=== PATIENT | female | born 1945 | race Caucasian/White ===

== ENCOUNTER 2017-02-10 05:55 | Emergency (ER) | payer MEDICARE, OTHER ==
[2017-02-10] MEDS ORDERED: RX INFO: IV CONTRAST WAS GIVEN 1 EACH MISC MISCELLANE PRN (06:31)
[2017-02-10] MEDS ORDERED: NITROGLYCERIN OINT 1 INCH/GM PACKET TOPICAL STA (06:32)
--- NOTE | 2017-02-10 06:35 | ED ---
General Adult HPI - General Source: patient, RN notes reviewed Mode of arrival: ambulatory Limitations: no limitations <Reynaldo Schwartz - Last Filed: 02/10/17 06:32> <Emil Rogers - Last Filed: 02/10/17 09:50> - General Chief complaint: Chest Pain Stated complaint: Chest Pain Time Seen by Provider: 02/10/17 06:23 - History of Present Illness Initial comments: Patient is a pleasant 71-year-old female presenting to the emergency department complaining of chest discomfort. Onset of symptoms was last night. Discomfort feels like pressure in her lower chest. Discomfort does change with positions. Patient feels there may be a lump in her lower sternal region. No abdominal pain. No associated dyspnea, nausea, or diaphoresis. No history of similar symptoms previously. Patient did have sternotomy with aortic valve replacement done around 1 year ago at [facility]. Patient states she was told here previously that she may have an aneurysm however at [facility] there was no report of aneurysm. (Reynaldo Schwartz) - Related Data Home Medications Medication Instructions Recorded Confirmed Rosuvastatin Calcium [Crestor] 10 mg PO DAILY 10/02/14 02/10/17 metFORMIN HCL [Glucophage] 500 mg PO BID 10/02/14 02/10/17 Aspirin EC [Ecotrin Low Dose] 81 mg PO BID 02/10/17 02/10/17 Lisinopril [Zestril] 2.5 mg PO DAILY 02/10/17 02/10/17 Metoprolol Tartrate [Lopressor] 25 mg PO BID 02/10/17 02/10/17 Previous Rx's Medication Instructions Recorded Ibuprofen [Motrin] 600 mg PO Q8HR PRN #15 tab 02/10/17 Allergies Allergy/AdvReac Type Severity Reaction Status Date / Time No Known Allergies Allergy Verified 02/10/17 07:19 Review of Systems ROS Other: All systems not noted in ROS Statement are negative. Constitutional: Denies: fever Eyes: Denies: eye pain ENT: Denies: ear pain Respiratory: Denies: cough, dyspnea Cardiovascular: Reports: chest pain Endocrine: Denies: fatigue Gastrointestinal: Denies: abdominal pain Genitourinary: Denies: dysuria Musculoskeletal: Denies: back pain Skin: Denies: rash Neurological: Denies: weakness <Reynaldo Schwartz - Last Filed: 02/10/17 06:32> ROS Other: All systems not noted in ROS Statement are negative. <Emil Rogers Gerard - Last Filed: 02/10/17 09:50> ROS Statement: Those systems with pertinent positive or pertinent negative responses have been documented in the HPI. Past Medical History Past Medical History: Diabetes Mellitus, Hyperlipidemia, Hypertension Additional Past Medical History / Comment(s): "aortic valve leak" History of Any Multi-Drug Resistant Organisms: None Reported Past Surgical History: Appendectomy, Hysterectomy Additional Past Surgical History / Comment(s): right shoulder. james cataract. stents placed in eyes. Past Psychological History: No Psychological Hx Reported Smoking Status: Former smoker Past Alcohol Use History: None Reported Past Drug Use History: None Reported <Reynaldo Schwartz - Last Filed: 02/10/17 06:32> General Exam Limitations: no limitations General appearance: alert, in no apparent distress Head exam: Present: atraumatic Eye exam: Present: normal appearance, PERRL ENT exam: Present: normal oropharynx Neck exam: Present: normal inspection Respiratory exam: Present: normal lung sounds bilaterally, other (No palpable mass or swelling). Absent: chest wall tenderness Cardiovascular Exam: Present: regular rate, normal rhythm Expanded Peripheral pulses: 2+: Radial (R), Radial (L), Dorsalis Pedis (R), Dorsalis Pedis (L) GI/Abdominal exam: Present: soft. Absent: distended, tenderness, guarding, rebound, rigid, pulsatile mass Extremities exam: Present: normal inspection. 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 MI 160. QRS 120. QTc 462. QTC 457. Left axis. LVH. Septal Q waves. Repolarization changes. ST depression V4-v5. <Reynaldo Schwartz - Last Filed: 02/10/17 06:32> Medical Decision Making <Reynaldo Schwartz - Last Filed: 02/10/17 06:32> - Lab Data Result diagrams: 02/10/17 06:49 02/10/17 06:49 <Emil Rogers - Last Filed: 02/10/17 09:50> - Medical Decision Making 71-year-old female presenting with chief complaint of chest pain. This was first noted patient was rolling over in bed. Described as a sharp pain on the lower border of the sternum. Patient was signed out at shift change awaiting laboratory studies and computed tomography scan. Computed tomography scan was obtained as patient has a known diagnosis of aortic root aneurysm and was quite hypertensive when she presented. Patient did not take her morning antihypertensive medications. On examination patient has reproducible pain and mild deformity of the lower sternum. There is no overlying erythema or warmth. No concern for cellulitis or infection. CT angiography is obtained, this shows a stable 4.2 cm aortic root aneurysm with no dissection, no pulmonary embolism. No change from previous CT 1 year ago. EKG shows sinus bradycardia with a ventricular rate 59, there is no T-wave flattening and inversion in the lateral precordium compared to previous EKG in 2011, otherwise EKG is unchanged. These findings are discussed with Dr. Newell as well as the patient' s presentation. He recommends anti-inflammatory medications and outpatient follow-up. Patient will call to make an appointment with her online merchandiser on Saturday or Saturday. CT findings including adrenal mass are discussed with the patient and she will follow-up with her primary care physician. Diagnosis: Musculoskeletal chest pain (Emil Rogers) - Lab Data Lab Results 02/10/17 02/10/17 02/10/17 Range/Units 06:49 06:49 06:49 WBC 5.3 (3.8-10.6) k/uL RBC 4.84 (3.80-5.40) m/uL Hgb 14.1 (11.4-16.0) gm/dL Hct 45.3 (34.0-46.0) % MCV 93.6 (80.0-100.0) fL MCH 29.2 (25.0-35.0) pg MCHC 31.2 (31.0-37.0) g/dL RDW 14.1 (11.5-15.5) % Plt Count 272 (150-450) k/uL Neutrophils % 69 % Lymphocytes % 18 % Monocytes % 5 % Eosinophils % 5 % Basophils % 1 % Neutrophils # 3.7 (1.3-7.7) k/uL Lymphocytes # 1.0 (1.0-4.8) k/uL Monocytes # 0.3 (0-1.0) k/uL Eosinophils # 0.3 (0-0.7) k/uL Basophils # 0.0 (0-0.2) k/uL PT (9.0-12.0) sec INR (<1.2) APTT (22.0-30.0) sec Sodium 139 (137-145) mmol/L Potassium 4.4 (3.5-5.1) mmol/L Chloride 107 (98-107) mmol/L Carbon Dioxide 23 (22-30) mmol/L Anion Gap 9 mmol/L BUN 16 (7-17) mg/dL Creatinine 0.70 (0.52-1.04) mg/dL Est GFR (MDRD) Af Amer >60 (>60 ml/min/1.73 sqM) Est GFR (MDRD) Non-Af >60 (>60 ml/min/1.73 sqM) Glucose 163 H (74-99) mg/dL Calcium 8.8 (8.4-10.2) mg/dL Magnesium 1.7 (1.6-2.3) mg/dL Total Bilirubin 0.3 (0.2-1.3) mg/dL AST 20 (14-36) U/L ALT 30 (9-52) U/L Alkaline Phosphatase 74 (38-126) U/L Total Creatine Kinase 119 (30-135) U/L CK-MB (CK-2) 1.5 (0.0-2.4) ng/mL CK-MB (CK-2) Rel Index 1.3 Troponin I <0.012 (0.000-0.034) ng/mL Total Protein 6.6 (6.3-8.2) g/dL Albumin 3.7 (3.5-5.0) g/dL 02/10/17 Range/Units 06:49 WBC (3.8-10.6) k/uL RBC (3.80-5.40) m/uL Hgb (11.4-16.0) gm/dL Hct (34.0-46.0) % MCV (80.0-100.0) fL MCH (25.0-35.0) pg MCHC (31.0-37.0) g/dL RDW (11.5-15.5) % Plt Count (150-450) k/uL Neutrophils % % Lymphocytes % % Monocytes % % Eosinophils % % Basophils % % Neutrophils # (1.3-7.7) k/uL Lymphocytes # (1.0-4.8) k/uL Monocytes # (0-1.0) k/uL Eosinophils # (0-0.7) k/uL Basophils # (0-0.2) k/uL PT 10.6 (9.0-12.0) sec INR 1.0 (<1.2) APTT 26.1 (22.0-30.0) sec Sodium (137-145) mmol/L Potassium (3.5-5.1) mmol/L Chloride (98-107) mmol/L Carbon Dioxide (22-30) mmol/L Anion Gap mmol/L BUN (7-17) mg/dL Creatinine (0.52-1.04) mg/dL Est GFR (MDRD) Af Amer (>60 ml/min/1.73 sqM) Est GFR (MDRD) Non-Af (>60 ml/min/1.73 sqM) Glucose (74-99) mg/dL Calcium (8.4-10.2) mg/dL Magnesium (1.6-2.3) mg/dL Total Bilirubin (0.2-1.3) mg/dL AST (14-36) U/L ALT (9-52) U/L Alkaline Phosphatase (38-126) U/L Total Creatine Kinase (30-135) U/L CK-MB (CK-2) (0.0-2.4) ng/mL CK-MB (CK-2) Rel Index Troponin I (0.000-0.034) ng/mL Total Protein (6.3-8.2) g/dL Albumin (3.5-5.0) g/dL Disposition <Reynaldo Schwartz - Last Filed: 02/10/17 06:32> Time of Disposition: 09:49 <Emil Rogers - Last Filed: 02/10/17 09:50> Clinical Impression: Musculoskeletal chest pain Disposition: HOME SELF-CARE Condition: Good Instructions: Costochondritis (ED), Chest Pain (ED) Prescriptions: Ibuprofen [Motrin] 600 mg PO Q8HR PRN #15 tab PRN Reason: Pain Referrals: Duc Vazquez MD [Primary Care Provider] - 1-2 days
[2017-02-10 07:14] LABS: Basophils % (A) 1 %; CH 29.9; CHCM 32.1; Eosinophils # (A) 0.3 k/uL (0-0.7); Eosinophils % (A) 5 %; HCT 45.3 % (34.0-46.0); HDW 2.18; HGB 14.1 gm/dL (11.4-16.0); Luc % (Auto) 2; Lymphocytes % (A) 18 %; MCH 29.2 pg (25.0-35.0); MCHC 31.2 g/dL (31.0-37.0); MCV 93.6 fL (80.0-100.0); Mean Platelet Volume 7.9; Monocytes # (A) 0.3 k/uL (0-1.0); Monocytes % (A) 5 %; Neutrophils # (A) 3.7 k/uL (1.3-7.7); Neutrophils % (A) 69 %; RBC 4.84 m/uL (3.80-5.40); RDW 14.1 % (11.5-15.5); WBC 5.3 k/uL (3.8-10.6); WBC (Perox) 5.41
[2017-02-10 07:30] LABS: ALT 30 U/L (9-52); AST 20 U/L (14-36); Alkaline Phosphatase 74 U/L (38-126); Anion Gap 9 mmol/L; Blood Urea Nitrogen 16 mg/dL (7-17); Calcium 8.8 mg/dL (8.4-10.2); Carbon Dioxide 23 mmol/L (22-30); Chloride 107 mmol/L (98-107); Glucose 163 mg/dL (74-99); Magnesium 1.7 mg/dL (1.6-2.3); Non-African American GFR(MDRD) >60 (>60 ml/min/1.73 sqM); Partial Thromboplastin Time 26.1 sec (22.0-30.0); Potassium 4.4 mmol/L (3.5-5.1); Prothrombin Time 10.6 sec (9.0-12.0); Sodium 139 mmol/L (137-145); Total Bilirubin 0.3 mg/dL (0.2-1.3); Total Protein 6.6 g/dL (6.3-8.2)
[2017-02-10 07:44] LABS: Creatine Kinase 119 U/L (30-135)
[2017-02-10 07:57] LABS: Creatine Kinase MB 1.5 ng/mL (0.0-2.4); Troponin I <0.012 ng/mL (0.000-0.034)
[2017-02-10] MEDS ORDERED: METOPROLOL TARTRATE 25 MG TAB PO STA (08:00)
[2017-02-10] MEDS ORDERED: LISINOPRIL 5 MG TAB PO STA (08:03)
[2017-02-10 08:47] VITALS: RESP 16
--- NOTE | 2017-02-10 09:07 | CT ---
EXAMINATION TYPE: CT angio chest DATE OF EXAM: 02/10/2017 8:51 AM COMPARISON: Previous study dated 05/04/2015 HISTORY: Chest pain, lump on sternum, history of ascending aneurysm CT DLP: 718 mGycm Automated exposure control for dose reduction was used. CONTRAST: CTA scan of the thorax is performed with IV Contrast, patient injected with 100 mL of Omnipaque 350, pulmonary embolism protocol. . FINDINGS: There is dependent atelectasis at the lung bases. The lungs are otherwise clear. There is no significant axillary, internal mammary, mediastinal or hilar adenopathy. There is no pleu ral or pericardial fluid. Heart size is upper limits of normal. There is no evidence of pulmonary embolus. The root of the aorta is aneurysmal measuring 4.2 cm. This is unchanged in size from previous. The pr oximal arch measures 3.4 cm. The proximal descending thoracic aorta measures 3.1 cm. At the level of the aortic hiatus, the aorta is normal in size measuring 2.6 cm. There is no evidence of dissection. There is been slight enlargement in the patient's known right adrenal tumor which previously measured 11.6 x 16.9 mm. Today this measures 13.7 x 19.6 mm. Visualized portions of the upper abdomen are otherwise normal. There is a partial eventration of the right hemidiaphragm. There has been an interval midline sternotomy. The most inferior sternal wire is projecting anteriorl y and there is a soft tissue reaction, likely granulomatous in nature. There is evidence of hypertrophic spondylosis within the spine. IMPRESSION: 1. STABLE ASCENDING THORACIC AORTIC ANEURYSM. 2. THIS EXAMINATION IS NEGATIVE FOR PULMONARY EMBOLUS. 3. SLIGHT ENLARGEMENT IN THE SIZE OF THE PATIENT'S KNOWN RIGHT ADRENAL MASS. 4. SOFT TISSUE REACTION TO THE MOST INFERIOR STERNAL WIRE WHICH IS PROJECTING ANTERIORLY.
[2017-02-10 10:14] VITALS: BP 175/77; PULSE 55; TEMP 97.6
== END 2017-02-10 10:14 | disposition home or self-care (01) ==
LOC: EC 05:55 → SUPCPDRO 05:55 → EC 10:14
DX: R07.89 Other chest pain (principal); E11.9 Type 2 diabetes mellitus without complications; E78.5 Hyperlipidemia, unspecified; I10 Essential (primary) hypertension; Z95.2 Presence of prosthetic heart valve; Z87.891 Personal history of nicotine dependence; Z79.84 Long term (current) use of oral hypoglycemic drugs; Z79.82 Long term (current) use of aspirin; Z79.899 Other long term (current) drug therapy
CPT/HCPCS: 36415; 93005; 80053; 82550; 82553; 83735; 84484; 85025; 85610; 85730; 71275; 99285; Q9967

== ENCOUNTER 2017-03-08 08:07 | Day surgery (SDC) | payer MEDICARE, OTHER ==
[2017-03-07 10:25] VITALS: BMI 32.0
[~2017-03-08 08:07] MED LIST: LACTATED RINGERS 1,000 ML IV SCH; LIDOCAINE 1% 20 ML VIAL (10MG/ML) FOR IV START INTRADERMA PRN
[2017-03-08 08:57] VITALS: TEMP 97.9
[2017-03-08 09:21] LABS: Glucose,Whole Blood 129 mg/dL (75-99)
[2017-03-08] MEDS ORDERED: LIDOCAINE 1% INJ 10MG/ML (20 ML MDV) ONE (09:23)
[2017-03-08] MEDS ORDERED: PROPOFOL 10 MG/ML 20 ML VIAL IV ONE (09:23)
--- NOTE | 2017-03-08 09:46 | P.PCN ---
Date of Procedure: 03/08/17 Procedure(s) Performed: BRIEF HISTORY: Patient is a 72-year-old pleasant white female scheduled for an elective colonoscopy as a part of screening for colorectal neoplasia. Her last colonoscopy was 10 years ago. PROCEDURE PERFORMED: Colonoscopy. PREOPERATIVE DIAGNOSIS: Screening for colon cancer. IV sedation per Anesthesia. PROCEDURE: After informed consent was obtained, the patient, was brought into the endoscopy unit. IV sedation was administered by Anesthesia under continuous monitoring. Digital rectal examination was normal. Initially the Olympus CF- 160 flexible video colonoscope was then inserted in the rectum, gradually advanced into the cecum without any difficulty. Careful examination was performed as the scope was gradually being withdrawn. Ileocecal valve and the appendiceal orifice were visualized and appeared normal. Prep was excellent. Mucosa of the cecum, ascending colon, transverse colon, descending colon, sigmoid colon, and rectum appeared normal. Sigmoid diverticulosis seen.Retroflexion was performed in the rectum and no lesions were seen. The patient tolerated the procedure well. IMPRESSION: Normal-appearing colon from rectum to cecum no evidence of colorectal neoplasia . Scattered sigmoid diverticulosis RECOMMENDATIONS: Findings of this examination were discussed with the patient patient as well as her family. She was advised to have a repeat screening colonoscopy in 10 years
[2017-03-08 09:48] VITALS: RESP 16
[2017-03-08 10:07] VITALS: BP 139/65; PULSE 55
== END 2017-03-08 10:31 | disposition home or self-care (01) ==
LOC: ORWHC2ENDO 08:07
PROVIDERS: ATTEND Internal Medicine Gastroenterology
DX: Z12.11 Encounter for screening for malignant neoplasm of colon (principal); K57.30 Diverticulosis of large intestine without perforation or abscess without bleeding; I10 Essential (primary) hypertension; E78.5 Hyperlipidemia, unspecified; E11.9 Type 2 diabetes mellitus without complications; Z79.84 Long term (current) use of oral hypoglycemic drugs; Z79.82 Long term (current) use of aspirin; Z79.899 Other long term (current) drug therapy; Z79.1 Long term (current) use of non-steroidal anti-inflammatories (NSAID)
CPT/HCPCS: J2001; J2704; G0121; 45378

== ENCOUNTER → 2017-06-19 | Outpatient (CLI) | payer MEDICARE, OTHER ==
--- NOTE | 2017-06-19 11:37 | BD ---
EXAMINATION TYPE: MG DEXA axial skeleton. DATE OF EXAM: 06/19/2017 COMPARISON: 05/18/2015 CLINICAL HISTORY: 72-year-old female postmenopausal screening without HRT Height: 61 IN Weight: 177 LBS FRAX RISK QUESTIONS: Alcohol (3 or more units per day): NO Family History (Parent hip fracture): NO Glucocorticoids (More than 3mos): NO (Ex: prednisone, prednisolone, methylprednisolone, dexamethasone, and hydrocortisone). History of Fracture in Adulthood: NO Secondary Osteoporosis: 1. Type 1 Diabetes: NO 2. Hyperthyroidism: NO 3. Menopause before 45: YES 43 4. Malnutrition: NO 5. Chronic liver disease: NO Rheumatoid Arthritis: NO Current Tobacco Use: NO RISK FACTORS HISTORY OF: Active: YES Postmenopausal woman: AGE 43 Take estrogen and/or progesterone medications: NOT NOW How long: AGE 43 - 44 MEDICATIONS: Additional Medications: HEART MEDS EXAM MEASUREMENTS: Bone mineral densitometry was performed using the [employer] System. Bone mineral density as measured about the Lumbar spine is: ----- L1-L4(G/cm2): 1.377 T Score Values are as follows: ----- L2: 0.8 ----- L3: 2.7 ----- L4: 2.8 ----- L1-L4: 1.6 Bone mineral density has: Increased 0.2% since study of: 05/18/2015 Bone mineral density about the R hip (g/cm2): 0.960 Bone mineral density about the L hip (g/cm2): 1.016 T Score values are as follows: -----R Neck: -0.6 -----L Neck: -0.2 -----R Total: -0.9 -----L Total: -0.1 Bone mineral density has: Decreased -4.6% since study of: 05/18/2015 IMPRESSION: Normal (Values between +1 and -1 indicate normal bone mass). Consider repeating this study in 5 year s or sooner if there is some new clinical indication. NOTE: T-SCORE=SD OF THE YOUNG ADULT MEAN.
--- NOTE | 2017-06-26 10:09 | MM ---
Reason for exam: screening (asymptomatic). Last mammogram was performed 2 years and 1 month ago. History: Patient is postmenopausal. Family history of breast cancer in mother at age 78 and breast cancer in cousin at age 50. Took estrogen for 7 years beginning at age 42. Physical Findings: A clinical breast exam by your physician is recommended on an annual basis and results should be correlated with mammographic findings. MG 3D Screening Mammo W/Cad Bilateral CC and MLO view(s) were taken. Prior study comparison: May 18, 2015, bilateral MG 3d screening mammo w/cad. May 29, 2013, bilateral digital screening mammo w/CAD. The breast tissue is heterogeneously dense. This may lower the sensitivity of mammography. There is no discrete abnormality. No significant changes when compared with prior studies. ASSESSMENT: Negative, BI-RAD 1 RECOMMENDATION: Routine screening mammogram of both breasts in 1 year.
== END | disposition home or self-care (01) ==
LOC: RADMAMWWP 07:22
PROVIDERS: ATTEND Internal Medicine
DX: Z12.31 Encounter for screening mammogram for malignant neoplasm of breast (principal); Z78.0 Asymptomatic menopausal state
CPT/HCPCS: 77063; 77067; 77080

== ENCOUNTER → 2018-07-30 | Outpatient (CLI) | payer MEDICARE ==
--- NOTE | 2018-07-30 08:22 | MM ---
Reason for exam: additional evaluation requested from prior study. Last mammogram was performed 1 year and 1 month ago. History: Patient is postmenopausal. Family history of breast cancer in mother at age 78 and breast cancer in cousin at age 50. Took estrogen for 7 years beginning at age 42. Physical Findings: Nurse did not find any significant physical abnormalities on exam. MG 3D Diag Mammo W/Cad TYLER Bilateral CC and MLO view(s) were taken. Prior study comparison: June 19, 2017, bilateral MG 3d screening mammo w/cad. May 18, 2015, bilateral MG 3d screening mammo w/cad. There are scattered fibroglandular densities. No significant new findings when compared with previous films. These results were verbally communicated with the patient and result sheet given to the patient on 07/30/18. ASSESSMENT: Negative, BI-RAD 1 RECOMMENDATION: Routine screening mammogram of both breasts in 1 year. Manage on a clinical basis with regard to any right breast pain. If there is any suspicious palpable abnormality patient should be referred for ultrasound.
== END | disposition home or self-care (01) ==
LOC: RADMAMWWP 06:59
PROVIDERS: ATTEND Internal Medicine
DX: N64.4 Mastodynia (principal)
CPT/HCPCS: 77066; G0279; 77062

== ENCOUNTER → 2018-10-13 | Outpatient (CLI) | payer MEDICARE ==
--- NOTE | 2018-10-14 00:09 | CT ---
EXAMINATION TYPE: CT angio chest DATE OF EXAM: 10/13/2018 COMPARISON: 02/10/2017 HISTORY: 73-year-old female with thoracic aortic aneurysm without rupture TECHNIQUE: Contiguous axial scanning of the chest performed with IV Contrast, patient injected with 1 00 mL of Isovue 370. Coronal/sagittal MIP reconstructions performed. 3-D reconstructions generated on a dedicated independent workstation. CT DLP: 320.8 mGycm Automated exposure control for dose reduction was used. FINDINGS: Heart normal size without pericardial effusion. Median sternotomy wires are present with prosthetic aortic valve. Aortic root normal caliber at 3.1 cm. Similar mild aneurysm ascending aorta at 4.1 cm. Previously measured at 4.2 cm. Mild atherosclerotic arch calcifications with conventional arch vessel branching anatomy. Stable upper descending thoracic aorta at 2.9 cm, previously measured at 3.1 cm. No evidence for aortic dissection. No thoracic lymphadenopathy by CT size criteria. Small hiatal hernia. Visualized upper abdomen shows no gross abnormality. Mild diverticular change wi thin the visualized splenic flexure. Stable 1.7 x 1.0 cm right adrenal nodule. Stability suggests a b enign etiology. Mild scattered emphysematous change without consolidation or pleural effusion. Bones: Mild endplate spondylosis mid to lower thoracic spine. IMPRESSION: 1. PROSTHETIC AORTIC VALVE WITH MEDIAN STERNOTOMY. 2. RELATIVELY SIMILAR MILD ASCENDING AORTIC ANEURYSM AT 4.1 CM. THE DESCENDING THORACIC AORTA IS CURR ENTLY MEASURED UPPER LIMITS OF NORMAL AT 2.9 CM. 3. MINIMAL EMPHYSEMATOUS CHANGE. SMALL HIATAL HERNIA. 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
== END | disposition home or self-care (01) ==
LOC: RADCTMAIN 13:13
PROVIDERS: ATTEND Internal Medicine Interventional Cardiology
DX: I71.2 Thoracic aortic aneurysm, without rupture (principal); J43.9 Emphysema, unspecified; K44.9 Diaphragmatic hernia without obstruction or gangrene; Z95.2 Presence of prosthetic heart valve
CPT/HCPCS: 82565; 84520; 71275; 36415; Q9967

== ENCOUNTER 2019-07-13 08:39 | Inpatient (IN) | payer MEDICARE ==
[2019-07-13] MEDS ORDERED: NITROGLYCERIN OINT 1 INCH/GM PACKET TOPICAL STA (08:57)
[2019-07-13] MEDS ORDERED: ASPIRIN 81 MG PO STA (08:58)
--- NOTE | 2019-07-13 09:02 | ED ---
General Adult HPI - General Chief complaint: Chest Pain Stated complaint: chest pain Time Seen by Provider: 07/13/19 08:40 Source: patient, RN notes reviewed, old records reviewed Mode of arrival: wheelchair Limitations: no limitations - History of Present Illness Initial comments: This is a 74-year-old female who presents emergency department with past medical history significant for aortic valve replacement as well as diabetes hypertension high cholesterol. Patient states she woke up at 3:00 morning with pain in the epigastric area and radiates up into her chest and into her back. Patient also has a right-sided jaw pain. Patient is also having nausea but has not vomited. Patient denies any fever chills or cough per patient denies any shortness of breath. Patient denies any headache or lightheadedness numbness or weakness. Patient states the pain is consistent and has not gone away. Patient describes the pain as a burning achy feeling - Related Data Home Medications Medication Instructions Recorded Confirmed Rosuvastatin Calcium [Crestor] 10 mg PO DAILY 10/02/14 03/08/17 metFORMIN HCL [Glucophage] 500 mg PO BID 10/02/14 03/08/17 Aspirin EC [Ecotrin Low Dose] 81 mg PO BID 02/10/17 03/07/17 Lisinopril [Zestril] 2.5 mg PO DAILY 02/10/17 03/07/17 Metoprolol Tartrate [Lopressor] 25 mg PO BID 02/10/17 03/07/17 Previous Rx's Medication Instructions Recorded Ibuprofen [Motrin] 600 mg PO Q8HR PRN #15 tab 02/10/17 Allergies Allergy/AdvReac Type Severity Reaction Status Date / Time No Known Allergies Allergy Verified 03/07/17 10:19 Review of Systems ROS Statement: Those systems with pertinent positive or pertinent negative responses have been documented in the HPI. ROS Other: All systems not noted in ROS Statement are negative. Past Medical History Past Medical History: Diabetes Mellitus, Hyperlipidemia, Hypertension Additional Past Medical History / Comment(s): "aortic valve leak" History of Any Multi-Drug Resistant Organisms: None Reported Past Surgical History: Appendectomy, Hysterectomy Additional Past Surgical History / Comment(s): right shoulder. james cataract. stents placed in eyes. open heart 4 years ago Past Anesthesia/Blood Transfusion Reactions: No Reported Reaction Past Psychological History: No Psychological Hx Reported Past Alcohol Use History: None Reported - Past Family History Mother Family Medical History: No Reported History General Exam - General Exam Comments Initial Comments: GENERAL: Patient is well-developed and well-nourished. Patient is nontoxic and well-hydrated and is in mild distress. ENT: Neck is soft and supple. No significant lymphadenopathy is noted. Oropharynx is clear. Moist mucous membranes. Neck has full range of motion without eliciting any pain. EYES: The sclera were anicteric and conjunctiva were pink and moist. Extraocular movements were intact and pupils were equal round and reactive to light. Eyelids were unremarkable. PULMONARY: Unlabored respirations. Good breath sounds bilaterally. No audible rales rhonchi or wheezing was noted. CARDIOVASCULAR: There is a regular rate and rhythm without any murmurs gallops or rubs. ABDOMEN: Soft and nontender with normal bowel sounds. Epigastric pain is not reproducible SKIN: Skin is clear with no lesions or rashes and otherwise unremarkable. NEUROLOGIC Patient is alert and oriented x3. Cranial nerves II through XII are grossly intact. Motor and sensory are also intact. Normal speech, volume and content. Symmetrical smile. MUSCULOSKELETAL: Normal extremities with adequate strength and full range of motion. No lower extremity swelling or edema. No calf tenderness. LYMPHATICS: No significant lymphadenopathy is noted PSYCHIATRIC: Normal psychiatric evaluation. Limitations: no limitations Course Vital Signs 07/13/19 07/13/19 08:39 10:34 Temperature 97.9 F Pulse Rate 55 L 51 L Respiratory 18 18 Rate Blood Pressure 198/72 199/77 O2 Sat by Pulse 98 Oximetry Medical Decision Making - Medical Decision Making EKG shows sinus bradycardia 56 bpm WV interval 260 QRS 124 Q-T intervals 42 QTC is 465. Patient's EKG is compared to an old EKG in no acute abnormality seen. Chest x-ray showed no acute abnormality. CT of the aorta showed no increasing aneurysm or dissection. Patient was started on heparin after she received aspirin and Nitropaste to the emergency department. I spoke with Dr. Garza and he agreed to admit the patient admitted the patient wrote admitting orders I continue the heparin Nitropaste and aspirin on the floor. - Lab Data Result diagrams: 07/13/19 09:05 07/13/19 09:05 Lab Results 07/13/19 07/13/19 07/13/19 Range/Units 09:05 09:05 09:05 WBC 7.0 (3.8-10.6) k/uL RBC 5.48 H (3.80-5.40) m/uL Hgb 16.6 H (11.4-16.0) gm/dL Hct 49.9 H (34.0-46.0) % MCV 91.1 (80.0-100.0) fL MCH 30.3 (25.0-35.0) pg MCHC 33.2 (31.0-37.0) g/dL RDW 12.8 (11.5-15.5) % Plt Count 268 (150-450) k/uL Neutrophils % 80 % Lymphocytes % 11 % Monocytes % 4 % Eosinophils % 3 % Basophils % 1 % Neutrophils # 5.6 (1.3-7.7) k/uL Lymphocytes # 0.8 L (1.0-4.8) k/uL Monocytes # 0.3 (0-1.0) k/uL Eosinophils # 0.2 (0-0.7) k/uL Basophils # 0.1 (0-0.2) k/uL PT 10.1 (9.0-12.0) sec INR 1.0 (<1.2) APTT 25.2 (22.0-30.0) sec Sodium 138 (137-145) mmol/L Potassium 4.8 (3.5-5.1) mmol/L Chloride 105 (98-107) mmol/L Carbon Dioxide 22 (22-30) mmol/L Anion Gap 11 mmol/L BUN 23 H (7-17) mg/dL Creatinine 0.82 (0.52-1.04) mg/dL Est GFR (CKD-EPI)AfAm 82 (>60 ml/min/1.73 sqM) Est GFR (CKD-EPI)NonAf 71 (>60 ml/min/1.73 sqM) Glucose 222 H (74-99) mg/dL Calcium 9.2 (8.4-10.2) mg/dL Magnesium 2.1 (1.6-2.3) mg/dL Total Bilirubin 0.5 (0.2-1.3) mg/dL AST 26 (14-36) U/L ALT 24 (4-34) U/L Alkaline Phosphatase 93 (38-126) U/L Troponin I (0.000-0.034) ng/mL Total Protein 8.0 (6.3-8.2) g/dL Albumin 4.6 (3.5-5.0) g/dL Amylase 78 (30-110) U/L Lipase 266 (23-300) U/L 07/13/19 Range/Units 09:05 WBC (3.8-10.6) k/uL RBC (3.80-5.40) m/uL Hgb (11.4-16.0) gm/dL Hct (34.0-46.0) % MCV (80.0-100.0) fL MCH (25.0-35.0) pg MCHC (31.0-37.0) g/dL RDW (11.5-15.5) % Plt Count (150-450) k/uL Neutrophils % % Lymphocytes % % Monocytes % % Eosinophils % % Basophils % % Neutrophils # (1.3-7.7) k/uL Lymphocytes # (1.0-4.8) k/uL Monocytes # (0-1.0) k/uL Eosinophils # (0-0.7) k/uL Basophils # (0-0.2) k/uL PT (9.0-12.0) sec INR (<1.2) APTT (22.0-30.0) sec Sodium (137-145) mmol/L Potassium (3.5-5.1) mmol/L Chloride (98-107) mmol/L Carbon Dioxide (22-30) mmol/L Anion Gap mmol/L BUN (7-17) mg/dL Creatinine (0.52-1.04) mg/dL Est GFR (CKD-EPI)AfAm (>60 ml/min/1.73 sqM) Est GFR (CKD-EPI)NonAf (>60 ml/min/1.73 sqM) Glucose (74-99) mg/dL Calcium (8.4-10.2) mg/dL Magnesium (1.6-2.3) mg/dL Total Bilirubin (0.2-1.3) mg/dL AST (14-36) U/L ALT (4-34) U/L Alkaline Phosphatase (38-126) U/L Troponin I <0.012 (0.000-0.034) ng/mL Total Protein (6.3-8.2) g/dL Albumin (3.5-5.0) g/dL Amylase (30-110) U/L Lipase (23-300) U/L Critical Care Time Critical Care Time: Yes Total Critical Care Time: 35 Disposition Clinical Impression: Unstable angina pectoris Disposition: ADMITTED IP TO THIS HOSP Referrals: Duc Vazquez MD [Primary Care Provider] - 1-2 days Time of Disposition: 11:07
[2019-07-13 09:18] LABS: Basophils # (A) 0.1 k/uL (0-0.2); Basophils % (A) 1 %; Eosinophils # (A) 0.2 k/uL (0-0.7); Eosinophils % (A) 3 %; HCT 49.9 % (34.0-46.0); HGB 16.6 gm/dL (11.4-16.0); Lymphocytes # (A) 0.8 k/uL (1.0-4.8); Lymphocytes % (A) 11 %; MCH 30.3 pg (25.0-35.0); MCHC 33.2 g/dL (31.0-37.0); MCV 91.1 fL (80.0-100.0); Mean Platelet Volume 8.3; Monocytes # (A) 0.3 k/uL (0-1.0); Monocytes % (A) 4 %; Neutrophils # (A) 5.6 k/uL (1.3-7.7); Neutrophils % (A) 80 %; Platelet Count 268 k/uL (150-450); RBC 5.48 m/uL (3.80-5.40); RDW 12.8 % (11.5-15.5)
[2019-07-13 09:29] LABS: Partial Thromboplastin Time 25.2 sec (22.0-30.0); Prothrombin Time 10.1 sec (9.0-12.0)
[2019-07-13 09:30] LABS: Albumin 4.6 g/dL (3.5-5.0); Calcium 9.2 mg/dL (8.4-10.2); Magnesium 2.1 mg/dL (1.6-2.3); Potassium 4.8 mmol/L (3.5-5.1); Total Bilirubin 0.5 mg/dL (0.2-1.3)
--- NOTE | 2019-07-13 09:30 | XR ---
EXAMINATION TYPE: XR chest 2V DATE OF EXAM: 07/13/2019 COMPARISON: 03/06/2016 HISTORY: Shortness of breath TECHNIQUE: Frontal and lateral views of the chest are obtained. FINDINGS: Scattered senescent parenchymal changes noted. Hyperinflation compatible with COPD. No evidence for infiltrate. No evidence for atelectasis. Heart size is stable. Mediastinal structures are stable and grossly unremarkable. No evidence for hilar prominence. Degenerative changes dorsal spine. IMPRESSION: 1. No evidence for acute pulmonary disease.
--- NOTE | 2019-07-13 10:49 | CT ---
EXAMINATION TYPE: CT angio thor/abd pel aorta DATE OF EXAM: 07/13/2019 COMPARISON: 10/13/2018 HISTORY: chest/epigastric pain CT DLP: 1567.8 mGycm CONTRAST: CTA thoracic and abdominal aorta with 3-D reconstruction is performed and with IV Contrast, patient i njected with 100 mL of Isovue 370. Contrast CTA of the thoracic and abdominal aorta was performed from the lung apex through the base of the pelvis. 3-D reconstruction imaging obtained at a separate workstation. CT Chest: THORACIC AORTA: Stable 4.1 cm ascending thoracic aortic aneurysm. Remaining thoracic aorta is of norm al caliber. No dissection or mediastinal hematoma. Mild atheromatous changes are seen. LUNGS: The lungs are clear and free of infiltrate or atelectasis. No pulmonary nodule or mass is det ected. No pleural effusion or CT evidence of interstitial lung disease. MEDIASTINUM: The heart is not enlarged. No evidence for mediastinal mass or adenopathy. HILAR STRUCTURES: No evidence for mass. No hilar adenopathy is appreciated. OTHER: No significant abnormality. CONTRAST CT ABDOMEN AND PELVIS ABDOMINAL AORTA: No evidence for abdominal aortic aneurysm. No dissection. Iliac vessels are symmet svitlana and patent. LIVER/GB- No significant abnormality is seen. PANCREAS- No significant abnormality is seen. SPLEEN- No significant abnormality is seen. ADRENALS-stable right adrenal nodule measuring 1.7 cm likely reflecting adenoma. KIDNEYS/BLADDER- No significant abnormality is seen. BOWEL- No Significant abnormality GENITAL ORGANS: Hysterectomy changes identified. LYMPH NODES- No greater than 1cm abdominal or pelvic lymph nodes are appreciated. OSSEOUS STRUCTURES- No significant abnormality is seen. OTHER- No significant abnormality is seen. IMPRESSION- Stable ascending thoracic aortic aneurysm. Otherwise unremarkable study.
[2019-07-13] MEDS ORDERED: HEPARIN SODIUM,PORCINE 5,000 UNIT/ML 1 ML VIAL IV ONE (11:05)
[2019-07-13] MEDS ORDERED: NITROGLYCERIN SL TABS 0.4 MG TAB SUBLINGUAL PRN (11:07)
[2019-07-13] MEDS ORDERED: HEPARIN SOD,PORK IN 0.45% NACL 25,000 UNIT in 0.45% NACL 1 250ML.BAG IV SCH (11:15)
[2019-07-13] MEDS ORDERED: NITROGLYCERIN OINT 1 INCH/GM PACKET TOPICAL SCH (12:00)
[2019-07-13] MEDS ORDERED: PANTOPRAZOLE 40 MG TABLET PO SCH (12:15)
[2019-07-13] MEDS ORDERED: LISINOPRIL 5 MG TAB PO SCH (12:15)
--- NOTE | 2019-07-13 12:37 | CONS ---
CONSULTATION Mrs. Hughes is a 74-year-old female with known history of aortic valve replacement, history of stable ascending aorta, history of mild coronary artery disease, hypertension, hyperlipidemia, diabetes mellitus, who presented with symptoms of epigastric and chest discomfort. The discomfort occurred during the night with site epigastrium radiating up to the chest associated with some symptoms of burning. Patient denies any change in her breathing. She denies any dizziness or palpitation. She denies any syncope. No PND, orthopnea, or peripheral edema. Her activity level has been limited because of her back discomfort, she was being evaluated to undergo surgical intervention that has been postponed because of the pandemic. She has underwent aortic valve replacement at [facility] and has a history of stable ascending aortic aneurysm. She recently started an over the counter medication that has vinegar about 4 days ago. Her coronary risk factors are remarkable for hypertension, hyperlipidemia, diabetes mellitus. She is a nonsmoker. MEDICATION: Include aspirin 81 mg twice a day, lisinopril 2.5 mg daily, metoprolol tartrate 25 mg twice a day, rosuvastatin 10 mg daily, metformin 500 mg twice a day, and ibuprofen on a p.r.n. basis. REVIEW OF SYSTEMS: RESPIRATORY SYSTEM: She has no recent wheezing. No cough. No history of documented obstructive lung disease. GI SYSTEM: She has change in the color of her stool, but she has not noted any blood and according to her that [id number] pill does not have iron. SYSTEM: No dysuria or hematuria. NERVOUS SYSTEM: No stroke or seizure. PHYSICAL EXAMINATION: She is a 74-year-old female, alert, oriented, in mild discomfort. Blood pressure 177/70 with a heart rate in the 50s. HEAD: Normocephalic. EYES: Sclerae nonicteric. NECK: Good upstroke, no bruit, no venous distention. LUNGS: Clear to auscultation. HEART: Regular rate and rhythm. S1, S2. No S3 with systolic murmur heard at the base, ejection type, early peaking, no diastolic murmur. ABDOMEN: Soft, epigastric tenderness reproducing the pain. No rebound. No organomegaly. EXTREMITIES: No edema, intact distal pulses. LAB DATA: Revealed a troponin less than 0.012. Blood sugar 222, BUN and creatinine 23 and 0.82. AST of 26, ALT of 24, lipase 266. Hemoglobin of 16.6. Her CT angiogram of the chest showed a stable aortic aneurysm measuring 4.1 cm with no significant changes. Her EKG revealed a sinus mechanism, rate of 56 with left axis deviation, evidence of left ventricular hypertrophy with no acute changes. Her chest x-ray shows no acute infiltrate. IMPRESSION: 1. Epigastric and chest discomfort, atypical for ischemic heart disease, probable GI in origin, I am concerned about the change in the color of the stools, although her hemoglobin is stable. 2. History of aortic valve replacement. 3. Stable ascending aortic aneurysm. 4. History of mild coronary artery disease. No evidence of acute coronary artery syndrome. 5. Hypertension, elevated. 6. Hyperlipidemia. 7. Diabetes mellitus. RECOMMENDATION: I will restart her lisinopril. Increase the dose to optimize her blood pressure control. I will also restart her beta aide and statin. If her second cardiac enzymes are negative, I will stop her IV heparin. I will add to her regimen Protonix. Will obtain echocardiogram with Doppler. Follow her hemoglobin and depending on her progress, further recommendation will be made. Thank you for this consult. Will follow with you. MMODL / IJN: [id number] /
[2019-07-13 12:40] LABS: Glucose,Whole Blood 186 mg/dL (75-99)
[2019-07-13] MEDS ORDERED: ONDANSETRON 4 MG/2 ML VIAL IVP STA (13:13)
[2019-07-13] MEDS ORDERED: amLODIPine 5 MG TAB PO STA (13:19)
[2019-07-13] MEDS ORDERED: MORPHINE SULFATE 2 MG/ML SYRINGE IVP PRN (16:32)
[2019-07-13 16:53] LABS: Glucose,Whole Blood 186 mg/dL (75-99)
[2019-07-13] MEDS ORDERED: NALOXONE 0.4 MG/ML 1 ML VIAL IV PRN (18:09)
--- NOTE | 2019-07-13 18:14 | P.HPIM ---
History of Present Illness H&P Date: 07/13/19 Chief Complaint: Epigastric pain 74-year-old female with PMH of aortic valve replacement, diabetes mellitus, hypertension, dyslipidemia, history of gastric ulcers presents the ED for epigastric pain. Patient states that she woke up from excruciating epigastric pain at 3:30 in the morning. She describes the pain is burning in nature. Pain did radiate to the back, her bilateral shoulders and her right jaw. Pain was 9 out of 10 in severity. She attempted to use Pepto-Bismol without any relief. She did feel the urge of having a bowel movement but was unable to do so. She did have one episode of emesis in the ED where she vomited her supper from last night. Patient describes history of IBS with intermittent diarrhea and constipation. She does follow Dr. Lui and has had a colonoscopy and EGD a few years back and was diagnosed with ulcers. Patient reports her last bowel movement was this morning and she describes melena over the past few days. She denies any headache, lower extremity edema, fever or chills, cough, shortness of breath, palpitations, changes in urination. No changes in appetite or weight. She denies any dizziness, numbness/weakness/tingling of the extremities. In the ED, she did have elevated blood pressure of 198/72 with pulse of 55. CBC showed hemoglobin of 16.6. Coagulation panel was negative. CMP showed BUN of 23, glucose of 222. Troponin was less than 0.0122, EKG showing sinus bradycardia with LVH. Amylase and lipase was negative. Chest x-ray was negative. CT of the aorta showed a stable ascending thoracic aortic aneurysm of 4.1 cm. Patient is admitted for epigastric pain, rule out acute coronary syndrome, with cardiology on consultation. Review of Systems Pertinent positives and negatives as discussed in HPI, a complete review of systems was performed and all other systems are negative. Past Medical History Past Medical History: Diabetes Mellitus, Hyperlipidemia, Hypertension Additional Past Medical History / Comment(s): "aortic valve leak" hx of IBS- dirrahea, stomach ulers years ago, History of Any Multi-Drug Resistant Organisms: None Reported Past Surgical History: Appendectomy, Coronary Bypass/CABG, Hysterectomy Additional Past Surgical History / Comment(s): right shoulder. james cataract. stents placed in eyes. open heart 4 years ago- aortic valve replaced, last colo was a few years ago Past Anesthesia/Blood Transfusion Reactions: No Reported Reaction Past Psychological History: No Psychological Hx Reported Smoking Status: Former smoker Past Alcohol Use History: None Reported Additional Past Alcohol Use History / Comment(s): smoked from her 20's to 40's less than 1/2 ppd Past Drug Use History: None Reported - Past Family History Mother Family Medical History: No Reported History Medications and Allergies Home Medications Medication Instructions Recorded Confirmed Type Rosuvastatin Calcium [Crestor] 10 mg PO HS 10/02/14 07/13/19 History Aspirin EC [Ecotrin Low Dose] 81 mg PO BID 02/10/17 07/13/19 History Dapagliflozin Propanediol [Farxiga] 10 mg PO DAILY 07/13/19 07/13/19 History Glimepiride [Amaryl] 1 mg PO DAILY 07/13/19 07/13/19 History Glimepiride [Amaryl] 2 mg PO HS 07/13/19 07/13/19 History Latanoprost/Pf [Latanoprost 0.005% 1 drop BOTH EYES HS 07/13/19 07/13/19 History Eye Drop] Lisinopril [Prinivil] 10 mg PO DAILY 07/13/19 07/13/19 History Metoprolol Tartrate [Lopressor] 25 mg PO BID 07/13/19 07/13/19 History Allergies Allergy/AdvReac Type Severity Reaction Status Date / Time No Known Allergies Allergy Verified 07/13/19 12:10 Physical Exam Vitals: Vital Signs Temp Pulse Pulse Resp BP BP Pulse Ox 07/13/19 12:40 53 L 20 07/13/19 12:36 97.3 F L 53 L 20 189/93 97 07/13/19 11:30 54 L 18 177/77 98 07/13/19 11:00 52 L 18 188/77 99 07/13/19 10:34 51 L 18 199/77 07/13/19 10:00 48 L 18 198/91 98 07/13/19 09:30 57 L 07/13/19 08:39 97.9 F 55 L 18 198/72 98 Intake and Output 07/13/19 07/13/19 07/13/19 06:59 14:59 22:59 Other: Voiding Method Toilet Weight 78.471 kg 78.471 kg General: [non toxic], [mild distress], [appears at stated age] Derm: [warm], [dry] Head: [atraumatic], [normocephalic], [symmetric] Eyes: [EOMI], [no lid lag], [anicteric sclera] Mouth: [no lip lesion], [mucus membranes moist] Cardiovascular: [S1S2 reg], [bradycardia], [positive DP pulse bilateral], Lungs: [CTA bilateral], [no rhonchi, no rales] , [no accessory muscle use] Abdominal: [soft], [epigastric tenderness without rebound], [no guarding], [no appreciable organomegaly] Ext: [no gross muscle atrophy], [no edema], [no contractures] Neuro: [ CN II-XI grossly intact], [no focal neuro deficits] Psych: [Alert], [oriented], [appropriate affect] Results CBC & Chem 7: 07/13/19 09:05 07/13/19 09:05 Labs: Abnormal Lab Results - Last 24 Hours (Table) 07/13/19 07/13/19 07/13/19 Range/Units 09:05 09:05 12:38 RBC 5.48 H (3.80-5.40) m/uL Hgb 16.6 H (11.4-16.0) gm/dL Hct 49.9 H (34.0-46.0) % Lymphocytes # 0.8 L (1.0-4.8) k/uL APTT (22.0-30.0) sec BUN 23 H (7-17) mg/dL Glucose 222 H (74-99) mg/dL POC Glucose (mg/dL) 186 H (75-99) mg/dL 07/13/19 07/13/19 Range/Units 16:51 16:55 RBC (3.80-5.40) m/uL Hgb (11.4-16.0) gm/dL Hct (34.0-46.0) % Lymphocytes # (1.0-4.8) k/uL APTT 38.5 H (22.0-30.0) sec BUN (7-17) mg/dL Glucose (74-99) mg/dL POC Glucose (mg/dL) 186 H (75-99) mg/dL Thrombosis Risk Factor Assmnt - Choose All That Apply Any of the Below Risk Factors Present?: Yes Each Factor Represents 1 point: Obesity (BMI >25) Other Risk Factors: Yes Each Risk Factor Represents 2 Points: Age 61-74 years Other congenital or acquired thrombophilia - If yes, enter type in comment: No Thrombosis Risk Factor Assessment Total Risk Factor Score: 3 Thrombosis Risk Factor Assessment Level: Moderate Risk Assessment and Plan Assessment: Epigastric pain likely related to gastritis or ulcer disease, rule out acute co ronary syndrome Diabetes mellitus with hyperglycemia Ascending thoracic aneurysm Accelerated Hypertension Dyslipidemia Glaucoma Symptoms likely related to gastritis or ulcer disease, less likely ACS. Troponins less than 0.0122 with EKG showing sinus bradycardia, ACS ruled out. Plans: Trend final troponin/EKG to rule out ACS. Hold aspirin. Discontinue heparin drip. Start Protonix 40 mg IV twice a day. Clear liquid diet. Morphine 2 mg IV every 4 as needed for pain. Zofran as needed for nausea or vomiting. Telemetry monitoring. Follow echocardiogram. Follow FOBT. Follow GI consultation. Ehezb-cr-[id number] glucose 186. Plans: Insulin sliding-scale. Regular Accu-Cheks. Hypoglycemic precautions. 4.[address] thoracic aorta. Stable. Plans: Follow-up with PCP. BP 188/77. Plans: Continue lisinopril. Continue metoprolol. Monitor vitals, adjust medications as necessary. Plans: Continue rosuvastatin. Plans: Continue latanoprost. DVT prophylaxis: [SCD boots] Discussed with: [Patient] Anticipated discharge: [2 days] Anticipated discharge place: [Home] A total of [45] minutes was spent on the care of this complex patient more than 50% of the time was spent in counseling and care coordination. Patient is admitted for anticipated greater than 48 hour admission Patient names her Jeison decision maker if she can't make decisions for herself. Patient would like to be full code.
[2019-07-13] MEDS: PANTOPRAZOLE 40 MG/10 ML VIAL IVP SCH (18:33)
[2019-07-13 18:38] LABS: HCT 49.7 % (34.0-46.0); HGB 16.3 gm/dL (11.4-16.0); MCH 30.5 pg (25.0-35.0); MCHC 32.9 g/dL (31.0-37.0); Mean Platelet Volume 8.4; Platelet Count 252 k/uL (150-450); RBC 5.35 m/uL (3.80-5.40); RDW 13.1 % (11.5-15.5)
[2019-07-13 20:49] LABS: Glucose,Whole Blood 205 mg/dL (75-99)
[2019-07-13] MEDS ORDERED: METOPROLOL TARTRATE 50 MG TAB PO SCH (21:00)
[2019-07-13] MEDS ORDERED: LATANOPROST 0.005% OPHTH DROPS 2.5 ML BTL BOTH EYES SCH (21:00)
[2019-07-13] MEDS ORDERED: ATORVASTATIN 20 MG TAB PO SCH (21:00)
[2019-07-13] MEDS: INSULIN ASPART (NovoLOG) 100 UNIT/ML VIAL SQ SCH (21:02)
[2019-07-13] MEDS: METOPROLOL TARTRATE 25 MG TAB PO SCH (21:02)
[2019-07-14 02:19] LABS: Glucose,Whole Blood 113 mg/dL (75-99)
[2019-07-14 06:06] LABS: Glucose,Whole Blood 135 mg/dL (75-99)
[2019-07-14 06:27] LABS: Basophils % (A) 0 %; Eosinophils # (A) 0.2 k/uL (0-0.7); Eosinophils % (A) 3 %; HCT 45.5 % (34.0-46.0); HGB 14.7 gm/dL (11.4-16.0); Lymphocytes # (A) 1.2 k/uL (1.0-4.8); Lymphocytes % (A) 18 %; MCH 30.1 pg (25.0-35.0); MCHC 32.4 g/dL (31.0-37.0); MCV 92.9 fL (80.0-100.0); Mean Platelet Volume 7.9; Monocytes # (A) 0.5 k/uL (0-1.0); Monocytes % (A) 7 %; Neutrophils # (A) 4.8 k/uL (1.3-7.7); Neutrophils % (A) 70 %; Platelet Count 209 k/uL (150-450); RDW 13.4 % (11.5-15.5); WBC 6.9 k/uL (3.8-10.6)
[2019-07-14] MEDS: INSULIN ASPART (NovoLOG) 100 UNIT/ML VIAL SQ SCH ×2 (06:31→12:21)
[2019-07-14 06:41] LABS: Calcium 8.7 mg/dL (8.4-10.2); Potassium 4.2 mmol/L (3.5-5.1)
--- NOTE | 2019-07-14 08:48 | ECHOF ---
Referral Reason:avr MEASUREMENTS -------- HEIGHT: 157.5 cm WEIGHT: 78.5 kg BP: RVIDd: 2.4 cm (< 3.3) IVSd: 1.6 cm (0.6 - 1.1) LVIDd: 3.1 cm (3.9 - 5.3) LVPWd: 1.5 cm (0.6 - 1.1) IVSs: 2.3 cm LVIDs: 1.8 cm LVPWs: 2.0 cm LAESV Index (A-L): 21.80 ml/m Ao Diam: 3.0 cm (2.0 - 3.7) AV Cusp: 2.0 cm (1.5 - 2.6) LA Diam: 3.0 cm (2.7 - 3.8) MV EXCURSION: 19.436 mm (> 18.000) MV EF SLOPE: 59 mm/s (70 - 150) EPSS: 0.8 cm MV E Bj: 0.52 m/s MV DecT: 403 ms MV A Bj: 0.89 m/s MV E/A Ratio: 0.59 AV maxP.36 mmHg AV meanP.92 mmHg AR PHT: 653 ms RAP: 5.00 mmHg RVSP: 21.52 mmHg FINDINGS -------- Resting bradycardia (HR<60bpm). This was a technically good study. The left ventricular size is normal. There is moderate concentric left ventricular hypertrophy. O verall left ventricular systolic function is normal with, an EF between 55 - 60 %. The diastolic fi lling pattern is normal for the age of the patient 10.59. The right ventricle is normal in size. The left atrial size is normal. Normal LA size by volume 22+/-6 ml/m2. The right atrial size is normal. Trace amount of aortic regurgitation. Peak/mean gradient across the Aortic Valve is 13.36mmHg / 6. 92mmHg. Normally functioning bioprosthetic valve. The mitral valve is normal. The mitral valve leaflets are mildly thickened. Mild mitral regurgita tion is present. The tricuspid valve appears structurally normal. Mild tricuspid regurgitation present. Right vent ricular systolic pressure is normal at < 35 mmHg. There is no pulmonic regurgitation present. The aortic root size is normal. Normal inferior vena cava with normal inspiratory collapse consistent with estimated right atrial pre ssure of 5 mmHg. There is no pericardial effusion. CONCLUSIONS -------- 1. Resting bradycardia (HR<60bpm). 2. This was a technically good study. 3. The left ventricular size is normal. 4. There is moderate concentric left ventricular hypertrophy. 5. Overall left ventricular systolic function is normal with, an EF between 55 - 60 %. 6. The diastolic filling pattern is normal for the age of the patient 10.59 7. The right ventricle is normal in size. 8. The left atrial size is normal. 9. Normal LA size by volume 22+/-6 ml/m2. 10. The right atrial size is normal. 11. Trace amount of aortic regurgitation. 12. Peak/mean gradient across the Aortic Valve is 13.36mmHg / 6.92mmHg. 13. Normally functioning bioprosthetic valve. 14. The mitral valve is normal. 15. The mitral valve leaflets are mildly thickened. 16. Mild mitral regurgitation is present. 17. The tricuspid valve appears structurally normal. 18. Mild tricuspid regurgitation present. 19. Right ventricular systolic pressure is normal at < 35 mmHg. 20. There is no pulmonic regurgitation present. 21. The aortic root size is normal. 22. Normal inferior vena cava with normal inspiratory collapse consistent with estimated right atrial pressure of 5 mmHg. 23. There is no pericardial effusion. SOCIAL MEDIA DIRECTOR: Geovanna Babb RDCS
[2019-07-14] MEDS ORDERED: ATORVASTATIN 40 MG TAB PO SCH (09:00)
[2019-07-14] MEDS ORDERED: LISINOPRIL 10 MG TAB PO SCH (09:00)
[2019-07-14] MEDS ORDERED: ASPIRIN 81 MG PO SCH (09:00)
[2019-07-14] MEDS ORDERED: ASPIRIN 325 MG TAB PO SCH (09:00)
[2019-07-14] MEDS: PANTOPRAZOLE 40 MG/10 ML VIAL IVP SCH (09:06)
[2019-07-14] MEDS: METOPROLOL TARTRATE 25 MG TAB PO SCH (09:06)
--- NOTE | 2019-07-14 09:44 | PN ---
PROGRESS NOTE Mrs Hughes is a 74-year-old female, status post aortic valve replacement, history of stable ascending aortic aneurysm, mild coronary artery disease, who presented with epigastric pain and change in the color of the stool. She is feeling well this morning. Her breathing is stable. She has no further chest pain. No dizziness. No palpitation. No nausea. She continues to be at this time on Lipitor 20 mg daily, lisinopril 10 mg daily, metoprolol tartrate 25 mg twice a day and Protonix 40 mg IV q.12 hours. PHYSICAL EXAMINATION: Blood pressure 126/59 with a heart rate in the 50s. LUNGS: Clear. HEART: Regular rate and rhythm, S1, S2. No S3 with a systolic murmur, no diastolic murmur, no rub. ABDOMEN: Soft, nontender. Positive bowel sounds, no organomegaly. EXTREMITIES: No edema. LAB DATA: Revealed BUN and creatinine 19 and 0.78. Potassium of 4.2, hemoglobin of 14.7. Cholesterol 134, LDL of 44. IMPRESSION: 1. Epigastric pain appears to be noncardiac, probable GI in origin. 2. Change in the color of the stool workup in progress. 3. Status post aortic valve replacement. 4. Stable ascending aortic aneurysm. RECOMMENDATION: We will review the results for echo. If there is no evidence of changes, no further cardiac workup will be needed. MMODL / IJN: [id number] /
[2019-07-14 11:34] LABS: Glucose,Whole Blood 185 mg/dL (75-99)
[2019-07-14 11:39] VITALS: RESP 18; TEMP 97.7
[2019-07-14 12:36] LABS: HCT 45.6 % (34.0-46.0); HGB 14.8 gm/dL (11.4-16.0); MCH 30.1 pg (25.0-35.0); MCHC 32.5 g/dL (31.0-37.0); MCV 92.7 fL (80.0-100.0); Mean Platelet Volume 8.3; Platelet Count 237 k/uL (150-450); RBC 4.92 m/uL (3.80-5.40); RDW 13.2 % (11.5-15.5); WBC 7.2 k/uL (3.8-10.6)
--- NOTE | 2019-07-14 13:59 | P.DS ---
Providers Date of admission: 07/13/19 18:10 Expected date of discharge: 07/14/19 Attending physician: Emmanuel Balderas MD Consults: 07/13/19 11:07 Consult Physician Urgent Consulting Provider: [facility] Consult Reason/Comments: Unstable angina Do you want consulting provider notified?: Yes 07/13/19 16:43 Consult Physician Urgent Consulting Provider: Kelly Powell Consult Reason/Comments: amb pain, hx IBS and ulcer Do you want consulting provider notified?: Yes Primary care physician: [facility] Course: 74-year-old female with PMH of aortic valve replacement, diabetes mellitus, hypertension, dyslipidemia, history of gastric ulcers presents the ED for epigastric pain. Patient states that she woke up from excruciating epigastric pain at 3:30 in the morning. She describes the pain is burning in nature. Pain did radiate to the back, her bilateral shoulders and her right jaw. Pain was 9 out of 10 in severity. She attempted to use Pepto-Bismol without any relief. She did feel the urge of having a bowel movement but was unable to do so. She did have one episode of emesis in the ED where she vomited her supper from last night. Patient describes history of IBS with intermittent diarrhea and constipation. She does follow Dr. Lui and has had a colonoscopy and EGD a few years back and was diagnosed with ulcers. Patient reports her last bowel movement was this morning and she describes melena over the past few days. She denies any headache, lower extremity edema, fever or chills, cough, shortness of breath, palpitations, changes in urination. No changes in appetite or weight. She denies any dizziness, numbness/weakness/tingling of the extremities. In the ED, she did have elevated blood pressure of 198/72 with pulse of 55. CBC showed hemoglobin of 16.6. Coagulation panel was negative. CMP showed BUN of 23, glucose of 222. Troponin was less than 0.0122, EKG showing sinus bradycardia with LVH. Amylase and lipase was negative. Chest x-ray was negative. CT of the aorta showed a stable ascending thoracic aortic aneurysm of 4.1 cm. Patient is admitted for epigastric pain, rule out acute coronary syndrome, with cardiology on consultation. Review of 2017 colonoscopy shows scattered diverticulosis. Patient was seen and examined. No acute events overnight. Patient reports complete resolution of her epigastric pain. She denies any chest pain, shortness of breath or palpitations. No nausea or vomiting. No fever or chills. General: [non toxic], [mild distress], [appears at stated age] Derm: [warm], [dry] Head: [atraumatic], [normocephalic], [symmetric] Eyes: [EOMI], [no lid lag], [anicteric sclera] Mouth: [no lip lesion], [mucus membranes moist] Cardiovascular: [S1S2 reg], [bradycardia], [positive DP pulse bilateral], Lungs: [CTA bilateral], [no rhonchi, no rales] , [no accessory muscle use] Abdominal: [soft], [epigastric no tenderness to palpation], [no guarding], [no a ppreciable organomegaly] Ext: [no gross muscle atrophy], [no edema], [no contractures] Neuro: [no focal neuro deficits] Psych: [Alert], [oriented], [appropriate affect] Epigastric pain likely related to gastritis or ulcer disease, rule out acute coronary syndrome Diabetes mellitus with hyperglycemia Ascending thoracic aneurysm Accelerated Hypertension Dyslipidemia Glaucoma Symptoms likely related to gastritis or ulcer disease, less likely ACS. Troponins less than 0.0123 with EKG showing sinus bradycardia, ACS ruled out. Hemoglobin stable at 14.8. Echocardiogram shows EF 55-60% with moderate concentric LVH. Plans: Discussed with GI, agreeable to continue ASA. Home with Protonix by mouth twice a day to follow up with GI within 2 weeks to arrange for endoscopy. [id number] glucose 185. Plans: Insulin sliding-scale. Regular Accu-Cheks. Hypoglycemic precautions. 4.[address] thoracic aorta. Stable. Plans: Follow-up with PCP. BP 134/69. Plans: Continue lisinopril. Continue metoprolol. Monitor vitals, adjust medications as necessary. Plans: Continue rosuvastatin. Plans: Continue latanoprost. [Epigastric discomfort likely related to gastritis or ulcer disease. Cleared for discharge by GI. Plans to follow-up for outpatient endoscopy. Start Protonix by mouth twice a day. This complex discharge took about 35 minutes to complete.] Health Concerns: Chest x-ray, CT thoracic aorta, echocardiogram Patient Condition at Discharge: Stable Plan - Discharge Summary New Discharge Prescriptions: New Pantoprazole Sodium [Protonix] 40 mg PO BID #60 tablet. Continue Rosuvastatin Calcium [Crestor] 10 mg PO HS Aspirin EC [Ecotrin Low Dose] 81 mg PO BID Metoprolol Tartrate [Lopressor] 25 mg PO BID Lisinopril [Prinivil] 10 mg PO DAILY Latanoprost/Pf [Latanoprost 0.005% Eye Drop] 1 drop BOTH EYES HS Glimepiride [Amaryl] 1 mg PO DAILY Glimepiride [Amaryl] 2 mg PO HS Dapagliflozin Propanediol [Farxiga] 10 mg PO DAILY Discharge Medication List Rosuvastatin Calcium [Crestor] 10 mg PO HS 10/02/14 [History] Aspirin EC [Ecotrin Low Dose] 81 mg PO BID 02/10/17 [History] Dapagliflozin Propanediol [Farxiga] 10 mg PO DAILY 07/13/19 [History] Glimepiride [Amaryl] 1 mg PO DAILY 07/13/19 [History] Glimepiride [Amaryl] 2 mg PO HS 07/13/19 [History] Latanoprost/Pf [Latanoprost 0.005% Eye Drop] 1 drop BOTH EYES HS 07/13/19 [History] Lisinopril [Prinivil] 10 mg PO DAILY 07/13/19 [History] Metoprolol Tartrate [Lopressor] 25 mg PO BID 07/13/19 [History] Pantoprazole Sodium [Protonix] 40 mg PO BID #60 tablet. 07/14/19 [Rx] Follow up Appointment(s)/Referral(s): Duc Vazquez MD [Primary Care Provider] - 1-2 days Kelly Powell MD [STAFF PHYSICIAN] - 2 Weeks Activity/Diet/Wound Care/Special Instructions: Diet: Cardiac Follow-up with PCP within 3 days of discharge. Follow-up with GI Dr. Lui within 2 weeks of discharge. Take all medications as advised to come back to the ED for worsening epigastric pain, vomiting blood, black stools, chest pain, shortness of breath, palpitations or dizziness. Discharge Disposition: HOME SELF-CARE
[2019-07-14 14:06] VITALS: PULSE 50
[2019-07-14 14:07] VITALS: BP 148/61
--- NOTE | 2019-07-14 19:18 | P.CONS ---
History of Present Illness - Reason for Consult Consult date: 07/14/19 Abdominal pain Requesting physician: Emmanuel Balderas - Chief Complaint Chest and abdominal pain - History of Present Illness 74-year-old female with a past medical history significant for aortic valve replacement, diabetes mellitus, hypertension, dyslipidemia, remote history of peptic ulcer disease presented to the hospital with complaints of chest and epigastric abdominal pain. The patient reports waking up at night with a sensation of burning in the epigastric region of her stomach and into her chest and back. She reports the pain being severe in nature and attempted to take Pepto-Bismol without any relief of her symptoms. She denies any history of gastroesophageal reflux disease. She does report a history of peptic ulcer disease diagnosed on EGD a few years ago. She does not take any PPI therapy at baseline. She did report nausea in association with the symptoms. She also reports she had previously been told of a history of irritable bowel syndrome with diarrhea when she was metformin further treatment of her diabetes mellitus but reports that this improved off of medication. Last colonoscopy in 02/2017 significant for diverticulosis. Laboratory evaluation on presentation significant for WBC 6.9, hemoglobin 14.7, platelet count 209,000, amylase 78, lipase 266, total bilirubin 0.5, alkaline phosphatase 93, AST 26, ALTs 24 with computed tomography scan of the aorta showing stable ascending thoracic aortic aneurysm with no abdominal abnormalities noted. Currently the patient is seen lying in bed reporting that the pain has resolved. Review of Systems REVIEW OF SYSTEMS: CONSTITUTIONAL: Denies any fevers, chills, weight change or fatigue. CARDIOVASCULAR: Denies any chest pain, palpitations high or low blood pressures RESPIRATORY: Denies any shortness of breath, hemoptysis or cough. GENITOURINARY: No dysuria or hematuria. MUSCULOSKELETAL: No weakness reported. SKIN: Denies any new rashes or lesions, jaundice or pallor. PSYCHIATRIC: Denies any depression or anxiety. NEUROLOGY: Denies headache, denies any new focal deficits. EARS/NOSE/THROAT: No recent hearing change, congestion, nasal discharge or sore throat. EYES: No pain in eyes, discharge or change in vision. GASTROINTESTINAL: As per HPI. Past Medical History Past Medical History: Diabetes Mellitus, Hyperlipidemia, Hypertension Additional Past Medical History / Comment(s): "aortic valve leak" hx of IBS- dirrahea, stomach ulers years ago, History of Any Multi-Drug Resistant Organisms: None Reported Past Surgical History: Appendectomy, Coronary Bypass/CABG, Hysterectomy Additional Past Surgical History / Comment(s): right shoulder. james cataract. stents placed in eyes. open heart 4 years ago- aortic valve replaced, last colo was a few years ago Past Anesthesia/Blood Transfusion Reactions: No Reported Reaction Past Psychological History: No Psychological Hx Reported Smoking Status: Former smoker Past Alcohol Use History: None Reported Additional Past Alcohol Use History / Comment(s): smoked from her 20's to 40's less than 1/2 ppd Past Drug Use History: None Reported - Past Family History Mother Family Medical History: No Reported History Medications and Allergies Home Medications Medication Instructions Recorded Confirmed Type Rosuvastatin Calcium [Crestor] 10 mg PO HS 10/02/14 07/13/19 History Aspirin EC [Ecotrin Low Dose] 81 mg PO BID 02/10/17 07/13/19 History Dapagliflozin Propanediol [Farxiga] 10 mg PO DAILY 07/13/19 07/13/19 History Glimepiride [Amaryl] 1 mg PO DAILY 07/13/19 07/13/19 History Glimepiride [Amaryl] 2 mg PO HS 07/13/19 07/13/19 History Latanoprost/Pf [Latanoprost 0.005% 1 drop BOTH EYES HS 07/13/19 07/13/19 History Eye Drop] Lisinopril [Prinivil] 10 mg PO DAILY 07/13/19 07/13/19 History Metoprolol Tartrate [Lopressor] 25 mg PO BID 07/13/19 07/13/19 History Pantoprazole Sodium [Protonix] 40 mg PO BID #60 tablet. 07/14/19 Rx Allergies Allergy/AdvReac Type Severity Reaction Status Date / Time No Known Allergies Allergy Verified 07/13/19 12:10 Physical Exam Vitals: Vital Signs Temp Pulse Pulse Resp BP BP Pulse Ox 07/14/19 04:00 98.7 F 54 L 16 126/59 96 07/14/19 03:39 53 L 18 07/14/19 00:00 97.7 F 53 L 18 124/63 97 07/13/19 20:17 97.9 F 72 18 128/47 97 07/13/19 12:40 53 L 20 07/13/19 12:36 97.3 F L 53 L 20 189/93 97 07/13/19 11:30 54 L 18 177/77 98 Intake and Output 07/13/19 07/14/19 07/14/19 22:59 06:59 14:59 Intake Total 180 600 Balance 180 600 Intake: IV 180 0.9 180 Oral 600 Other: Voiding Method Toilet # Voids 1 Weight 78.471 kg 79.4 kg On physical examination, patient appears comfortable in no apparent distress. HEAD: Normocephalic, atraumatic. EYES: No scleral icterus. No conjunctival injection. MOUTH: No lesions, tongue midline. NECK: Trachea midline, no gross abnormalities. CHEST: Clear to auscultation with no wheezing or rhonchi appreciated. HEART: Regular rate and rhythm. ABDOMEN: Soft, obese. Bowel sounds are positive. No organomegaly. No guarding or rigidity. EXTREMITIES: No pedal edema. SKIN: No rashes, no jaundice. NEUROLOGIC: Alert and oriented x3. No focal deficits. Results CBC & Chem 7: 07/14/19 12:02 07/14/19 06:15 Labs: Abnormal Lab Results - Last 24 Hours (Table) 07/13/19 07/13/19 07/13/19 Range/Units 12:38 16:51 16:55 Hgb (11.4-16.0) gm/dL Hct (34.0-46.0) % APTT 38.5 H (22.0-30.0) sec Chloride (98-107) mmol/L Carbon Dioxide (22-30) mmol/L BUN (7-17) mg/dL Glucose (74-99) mg/dL POC Glucose (mg/dL) 186 H 186 H (75-99) mg/dL Triglycerides (<150) mg/dL 07/13/19 07/13/19 07/14/19 Range/Units 18:22 20:47 02:18 Hgb 16.3 H (11.4-16.0) gm/dL Hct 49.7 H (34.0-46.0) % APTT (22.0-30.0) sec Chloride (98-107) mmol/L Carbon Dioxide (22-30) mmol/L BUN (7-17) mg/dL Glucose (74-99) mg/dL POC Glucose (mg/dL) 205 H 113 H (75-99) mg/dL Triglycerides (<150) mg/dL 07/14/19 07/14/19 Range/Units 06:04 06:15 Hgb (11.4-16.0) gm/dL Hct (34.0-46.0) % APTT (22.0-30.0) sec Chloride 109 H (98-107) mmol/L Carbon Dioxide 21 L (22-30) mmol/L BUN 19 H (7-17) mg/dL Glucose 139 H (74-99) mg/dL POC Glucose (mg/dL) 135 H (75-99) mg/dL Triglycerides 221 H (<150) mg/dL CT scan - chest: report reviewed (Stable thoracic aortic aneurysm on CT chest) Assessment and Plan (1) Epigastric abdominal pain Narrative/Plan: 74-year-old female with multiple medical comorbidities with the patient reporting prior history of irritable bowel syndrome diarrhea predominant as well as history of peptic ulcer disease who presented with complaints of chest and epigastric abdominal pain. Described as burning in sensation with radiation to the back symptoms of currently resolved. She denies eating prior to going to bed and had had meat loaf on the night of question. Symptoms have resolved. She denies any symptoms of reflux at baseline. She is previously followed up with gastroenterology service and would like to continue to be seen in the outpatient setting. Status: Acute Code(s): R10.13 - EPIGASTRIC PAIN SNOMED Code(s): 94923816 Plan: Supportive care Okay for diet as tolerated GERD lifestyle modifications including dietary restrictions, not eating prior to sleeping, and not overeating discussed with the patient Okay for discharge from GI with follow-up in the outpatient setting after d ischarge Have discussed use of PPI therapy and H2 antagonists with the patient however at this time she is not interested in medical management and would like lifestyle modifications Thank you for allowing us to participate in the care of the patient
--- NOTE | 2019-07-16 05:36 | CDI ---
Documentation Clarification Form Date: 07/16/2019 From: Ho Newell Phone: If you have a question about this query, please contact Yesi Izquierdo, Vessel Slag Worker at [phone] between 8am and 5pm. Admit Date: 07/13/2019 Discharge Date: 07/14/2019 Patient Name: Alyssia Hughes Visit Number: [id number] ATTENTION: The Clinical Documentation Specialists (CDI) and [facility] Coding Staff appreciate your assistance in clarifying documentation. Please respond to the clarification below the line at the bottom and electronically sign. The CDI & [facility] Coding staff will review the response and follow-up if needed. Please note: Queries are made part of the Legal Health Record. If you have any questions, please contact the author of this message via ITS. Dear Emmanuel Paula MD., The patient presented with the Epigastric pain. History/Risk Factors: CAD, Hyperlipidemia, gastritis. Epigastric discomfort likely related to gastritis or ulcer disease. Treatment: Start Samantha nix by mouth twice a day Consults: Etienne Nayak MD -Patient reports her last bowel movement was this morning and she describes melena over the past few days. Symptoms likely related to gastritis or ulcer disease. In your professional opinion, can you please clarify Melena related to Gastritis ? YES (Gastritis with bleeding) NO (Gastritis without bleeding) Other, please specify Unable to determine Gastritis or ulcer disease stool occult blood not done, unable to tell with or without bleeding MTDD
== END 2019-07-14 14:58 | disposition home or self-care (01) | DRG 384 ==
LOC: EC 08:39 → 3SCARD 11:07 → OBSVTOIN 18:10
PROVIDERS: ADMIT Family Medicine; ATTEND Family Medicine
DX: K25.9 Gastric ulcer, unspecified as acute or chronic, without hemorrhage or perforation (principal); K29.70 Gastritis, unspecified, without bleeding; I10 Essential (primary) hypertension; E78.00 Pure hypercholesterolemia, unspecified; E11.65 Type 2 diabetes mellitus with hyperglycemia; E78.5 Hyperlipidemia, unspecified; I71.2 Thoracic aortic aneurysm, without rupture; I25.10 Atherosclerotic heart disease of native coronary artery without angina pectoris; Z96.1 Presence of intraocular lens; R00.1 Bradycardia, unspecified; Z90.710 Acquired absence of both cervix and uterus; Z87.891 Personal history of nicotine dependence; Z95.1 Presence of aortocoronary bypass graft; Z79.899 Other long term (current) drug therapy; Z79.84 Long term (current) use of oral hypoglycemic drugs; Z79.82 Long term (current) use of aspirin; Z90.49 Acquired absence of other specified parts of digestive tract; Z98.890 Other specified postprocedural states; Z98.42 Cataract extraction status, left eye; Z98.41 Cataract extraction status, right eye; Z87.11 Personal history of peptic ulcer disease; Z95.2 Presence of prosthetic heart valve
CPT/HCPCS: 36415; 71046; 71275; 74174; 80048; 80053; 80061; 82150; 83690; 83735; 84484; 85025; 85027; 85610; 85730; 93005; 93306; 96365; 96376; 99291

== ENCOUNTER 2020-04-15 06:53 | Day surgery (SDC) | payer MEDICARE ==
[2020-04-13 11:24] VITALS: BMI 32.5
[~2020-04-15 06:53] MED LIST changes: +LIDOCAINE 1% (10MG/ML) FOR IV START INTRADERMA PRN; -LIDOCAINE 1% 20 ML VIAL (10MG/ML) FOR IV START INTRADERMA PRN
[2020-04-15 07:35] LABS: Glucose,Whole Blood 149 mg/dL (75-99)
[2020-04-15] MEDS ORDERED: LIDOCAINE 1% (10MG/ML) FOR IV START INTRADERMA ONE (07:35)
[2020-04-15 07:39] VITALS: TEMP 97
[2020-04-15] MEDS ORDERED: PROPOFOL 10 MG/ML 20 ML VIAL IV ONE (07:39)
--- NOTE | 2020-04-15 07:52 | P.PCN ---
Date of Procedure: 04/15/20 Procedure(s) Performed: BRIEF HISTORY: Patient is a 75-year-old, pleasant, white female scheduled for an upper endoscopy as a part of evaluation of chronic epigastric pain for the last 1 year duration. She has occasional heartburn but no dysphagia or odynophagia. She has been on Pepcid 20 mg daily that was started 2 weeks ago. She is scheduled for an upper endoscopy to evaluate further. PROCEDURE PERFORMED: Esophagogastroduodenoscopy with biopsy. PREOPERATIVE DIAGNOSIS: Chronic epigastric pain of 1 year duration. IV sedation per anesthesia. PROCEDURE: After informed consent was obtained, the patient was brought into the endoscopy unit. IV sedation was administered by Anesthesia under continuous monitoring. Initially the Olympus GIF-140 video endoscope was inserted into the mouth. Esophagus intubated without any difficulty. It was gradually advanced into the stomach and duodenum and carefully examined. The bulb and the second part of the duodenum had mild duodenitis. Biopsies were done from this area.. The scope at this time was withdrawn to the stomach, adequately insufflated with air, and upon careful examination, mucosa of the antrum, had mild gastritis and biopsies were also done from this area. The body, cardia and the fundus appeared normal. The scope was then withdrawn into the esophagus. The GE junction was located at 39 cm from the incisors. The esophagus appeared normal. There were no erosions or ulcerations seen, biopsies were done from the distal esophagus and the patient tolerated the procedure well. IMPRESSION: 1. Antral erosive gastritis. 2. Mild duodenitis duodenitis 3. Normal-appearing esophagus with no evidence of esophagitis or Guy's esophagus. RECOMMENDATIONS: The findings of this examination were discussed with the patient as well as a family. She was advised to follow with the biopsy results. Intermittent she'll continue with Pepcid 20 mg twice daily and follow antireflux measures. He'll be seen in office in 3-4 weeks..
[2020-04-15 08:21] VITALS: BP 132/59; PULSE 48; RESP 18
== END 2020-04-15 08:36 | disposition home or self-care (01) ==
LOC: ORWHC2ENDO 06:53
PROVIDERS: ATTEND Internal Medicine Gastroenterology
DX: K29.80 Duodenitis without bleeding (principal); K29.60 Other gastritis without bleeding; K31.89 Other diseases of stomach and duodenum; K20.0 Eosinophilic esophagitis; I10 Essential (primary) hypertension; E78.5 Hyperlipidemia, unspecified; E11.9 Type 2 diabetes mellitus without complications; K21.9 Gastro-esophageal reflux disease without esophagitis; Z90.710 Acquired absence of both cervix and uterus; Z95.1 Presence of aortocoronary bypass graft; Z95.2 Presence of prosthetic heart valve; Z79.82 Long term (current) use of aspirin; Z79.899 Other long term (current) drug therapy
CPT/HCPCS: 88305; 43239; J2704

== ENCOUNTER → 2020-06-08 | Outpatient (CLI) | payer MEDICARE ==
[2020-06-08 10:59] LABS: African American GFR (CKD) 64.3 (60.0-200.0); Albumin 4.4 g/dL (3.80-4.90); Albumin/Globulin Ratio 1.91 (1.60-3.17); Anion Gap 5.5 mmol/L (4.00-12.00); Calcium 10.1 mg/dL (8.7-10.3); Carbon Dioxide 28.5 mmol/L (21.6-31.8); Chol/HDL Ratio 3.35; Globulin 2.3 g/dL (1.6-3.3); LDL Cholesterol,Calculated 81.4 mg/dL (0.0-131.0); Non-African American GFR(CKD) 55.5 (60.0-200.0); Potassium 4.9 mmol/L (3.5-5.5); Total Bilirubin 0.6 mg/dL (0.3-1.2); Total Protein 6.7 g/dL (6.2-8.2); VLDL Calculation 26.6 mg/dL (5.00-40.00)
== END | disposition home or self-care (01) ==
LOC: LABWHC1 07:25
PROVIDERS: ATTEND Internal Medicine Interventional Cardiology
DX: E78.2 Mixed hyperlipidemia (principal)
CPT/HCPCS: 36415; 80053; 80061

== ENCOUNTER → 2020-08-26 | Outpatient (CLI) | payer MEDICARE ==
[2020-08-27 18:38] LABS: African American GFR (CKD) 64.3 (60.0-200.0); Anion Gap 13.6 mmol/L (4.00-12.00); Calcium 9.7 mg/dL (8.7-10.3); Carbon Dioxide 22.4 mmol/L (21.6-31.8); Non-African American GFR(CKD) 55.5 (60.0-200.0)
== END | disposition home or self-care (01) ==
LOC: LABWHC1 14:25
PROVIDERS: ATTEND Nurse Practitioner Adult Health
DX: I10 Essential (primary) hypertension (principal); I49.3 Ventricular premature depolarization
CPT/HCPCS: 36415; 80048; 83735

== ENCOUNTER → 2020-12-26 | Outpatient (CLI) | payer MEDICARE ==
[2020-12-26 15:56] LABS: Chol/HDL Ratio 3.67 Ratio; LDL Cholesterol,Calculated 99.1 mg/dL (0.0-131.0)
[2020-12-26 15:57] LABS: HDL Cholesterol 49.9 mg/dL (40.00-60.00)
== END | disposition home or self-care (01) ==
LOC: LABWHC1 09:15
PROVIDERS: ATTEND Internal Medicine Interventional Cardiology
DX: E78.2 Mixed hyperlipidemia (principal)
CPT/HCPCS: 36415; 80061; 84450; 84460

== ENCOUNTER → 2021-02-22 | Outpatient (CLI) | payer MEDICARE | END | disposition home or self-care (01) | LOC: LABWHC1 12:11 | PROVIDERS: ATTEND Internal Medicine | DX: Z20.822 Contact with and (suspected) exposure to COVID-19 (principal); R05.9 Cough, unspecified | CPT/HCPCS: U0003; C9803 ==

== ENCOUNTER → 2021-05-18 | Outpatient (CLI) | payer MEDICARE ==
--- NOTE | 2021-05-19 13:18 | MM ---
Reason for exam: screening (asymptomatic). Last mammogram was performed 2 years and 10 months ago. History: Patient is postmenopausal. Family history of breast cancer in mother at age 78 and breast cancer in cousin at age 50. Took estrogen for 7 years beginning at age 42. Physical Findings: A clinical breast exam by your physician is recommended on an annual basis and results should be correlated with mammographic findings. MG 3D Screening Mammo W/Cad Bilateral CC and MLO view(s) were taken. Prior study comparison: July 30, 2018, bilateral MG 3d diag mammo w/cad [facility]. June 19, 2017, bilateral MG 3d screening mammo w/cad. There are scattered fibroglandular densities. There is no discrete abnormality. No significant changes when compared with prior studies. ASSESSMENT: Negative, BI-RAD 1 RECOMMENDATION: Routine screening mammogram of both breasts in 1 year.
== END | disposition home or self-care (01) ==
LOC: RADMAMWWP 11:53
PROVIDERS: ATTEND Internal Medicine
DX: Z12.31 Encounter for screening mammogram for malignant neoplasm of breast (principal); Z78.0 Asymptomatic menopausal state; Z80.3 Family history of malignant neoplasm of breast
CPT/HCPCS: 77063; 77067

== ENCOUNTER → 2021-07-17 | Outpatient (CLI) | payer MEDICARE ==
--- NOTE | 2021-07-17 19:42 | US ---
EXAMINATION TYPE: US kidneys/renal and bladder DATE OF EXAM: 07/17/2021 COMPARISON: CT Angio-Seal 07/12/2021 and 06/30/2021 CLINICAL HISTORY: Kidney cyst. Kidney cyst EXAM MEASUREMENTS: Right Kidney: 11.2 x 4.7 x 4.7 cm Left Kidney: 11.1 x 4.7 x 4.5 cm Right Kidney: fullness of renal pelvis Left Kidney: 1.0 cm anechoic area without posterior acoustic enhancement. Previously on 07/13/2019 dem onstrated a 86 Hounsfield units and is most consistent with proteinaceous cyst. Bladder: wnl no evidence of mass. Bilateral Jets seen: yes There is no evidence for hydronephrosis at this point in time. No nephrolithiasis is seen. No slick s are identified. The urinary bladder is anechoic. Bilateral ureteral jets are seen. IMPRESSION: 1. Left lower pole hypoechoic lesion which demonstrated findings consistent with proteinaceous cyst on prior 07/13/2019. No further workup is recommended. 2. No evidence of obstructive uropathy.
== END | disposition home or self-care (01) ==
LOC: RADUSWWP 12:25
PROVIDERS: ATTEND Internal Medicine
DX: N28.1 Cyst of kidney, acquired (principal); N28.89 Other specified disorders of kidney and ureter
CPT/HCPCS: 76770

== ENCOUNTER → 2021-11-20 | Outpatient (CLI) | payer MEDICARE ==
--- NOTE | 2021-11-20 12:34 | CT ---
EXAMINATION TYPE: CT right knee - [facility] Protocol DATE OF EXAM: 11/20/2021 12:20 PM COMPARISON: HISTORY: Unilateral primary osteoarthritis, RT knee CT DLP: 499.50 mGycm Automated exposure control for dose reduction was used. TECHNIQUE: Noncontrast CT right knee [facility] protocol . FINDINGS: There is severe narrowing of the medial compartment of knee joint with hypertrophic spurring involvin g medial and lateral compartments. Severe narrowing with osteophyte formation involving the patellofe moral joint. Small amount of fluid is personally. Vascular calcifications are seen. There is no evidence of erosive change. There is osteitis pubis densities. Concentric narrowing of th e hip joint seen. There is no evidence of acute fracture or dislocation. Within the pelvis are changes of diverticulosis. Vascular calcifications are noted. There is atrophy of the musculature of the right lower extremity. IMPRESSION: SEVERE OSTEOARTHRITIS RIGHT KNEE.
== END | disposition home or self-care (01) ==
LOC: RADCTMAIN 10:54
PROVIDERS: ATTEND Orthopaedic Surgery
DX: M17.11 Unilateral primary osteoarthritis, right knee (principal)

== ENCOUNTER 2021-12-13 09:36 | Observation (INO) | payer MEDICARE ==
[~2021-12-13 09:36] MED LIST changes: +ACETAMINOPHEN TAB 500 MG TAB PO PRN; +DEXAMETHASONE SOD PHOSPHATE 10 MG/ML 1 ML VIAL IV PRN; +DEXAMETHASONE SOD PHOSPHATE 4 MG/ML 1 ML VIAL IV ONE; +DOCUSATE 100 MG CAP PO PRN; +FAMOTIDINE 20 MG/2 ML VIAL IVP PRN; +HYDROmorphone 0.5 MG/0.5 ML SYRINGE IVP PRN; +KETOROLAC 15 MG/ML 1 ML VIAL IVP PRN; -LACTATED RINGERS 1,000 ML IV SCH; -LIDOCAINE 1% (10MG/ML) FOR IV START INTRADERMA PRN; +ONDANSETRON 4 MG/2 ML VIAL IVP ONE; +ONDANSETRON 4 MG/2 ML VIAL IVP PRN; +ROPIVACAINE 246.25 MG, EPINEPHrine 0.5 MG, KETOROLAC (30 mg/mL) 30 MG, cloNIDine HCL/PF... MISCELLANE PRN; +TRANEXAMIC ACID IN NACL,ISO-OS 1,000 MG in SALINE 1 100ML.BAG IVPB PRN; +oxyCODONE ER 10 MG TAB.ER.12H PO PRN
[2021-12-13] MEDS ORDERED: LIDOCAINE 1% (10MG/ML) FOR IV START INTRADERMA ONE (10:50)
[2021-12-13] MEDS: LACTATED RINGERS 1,000 ML IV SCH (10:50)
[2021-12-13 11:10] LABS: Glucose,Whole Blood 145 mg/dL (70-110)
[2021-12-13] MEDS ORDERED: fentaNYL (PF) 50 MCG/ML 2 ML AMP IV ONE (11:20)
[2021-12-13] MEDS ORDERED: MIDAZOLAM 2 MG/2 ML VIAL IV ONE (11:20)
[2021-12-13] MEDS ORDERED: LACTATED RINGERS 1,000 ML IV ONE (13:09)
[2021-12-13] MEDS ORDERED: NALOXONE 0.4 MG/ML 1 ML VIAL IV PRN (14:58)
[2021-12-13] MEDS ORDERED: hydrOXYzine pamoate 25 MG CAP PO PRN (14:58)
[2021-12-13] MEDS ORDERED: HYDROmorphone 0.5 MG/0.5 ML SYRINGE IVP PRN ×3 (14:58)
[2021-12-13] MEDS ORDERED: ONDANSETRON 4 MG/2 ML VIAL IVP PRN (14:58)
--- NOTE | 2021-12-13 15:03 | P.OP ---
Date of Procedure: 12/13/21 Preoperative Diagnosis: 1. Severe right knee osteoarthritis 2. Type 2 diabetes 3. Aortic valve replacement 4. Coronary artery disease Postoperative Diagnosis: Same Procedure(s) Performed: Right total knee arthroplasty Implants: 1. [employer]rygla Triathlon CR Femur Size #2 2. Chaz Triathlon [place] Tibial Base Size #2 3. [place] Triathlon CS poly Size #2, 10-mm 4. Chaz Triathlon all poly patella, Size #29 Anesthesia: regional, spinal Surgeon: Ricardo Lara Special Effects Technician #1: Jazzy Coughlin Estimated Blood Loss (ml): 100 IV fluids (ml): 1,300 Pathology: none sent Condition: stable Disposition: PACU Indications for Procedure: I met with the patient preoperatively in the office setting and discussed treatment of their symptomatic knee arthritis. They failed a long course of nonsurgical treatment and elected to proceed with an elective total knee replacement. I discussed the potential risks and complications at length and gave them ample time to ask questions. Risks discussed included: risks from anesthesia, superficial site surgical infection, acute and/or chronic periprosthetic joint infection, delayed wound healing, drainage, wound necrosis, instability, stiffness, stiffness requiring manipulation and/or revision surgery, damage to local blood vessels or nerves, aseptic loosening of the implants, extensor mechanism issues including disruption, patellar maltracking, avascular necrosis etc., continued or worsened knee pain, generalized dissatisfaction with surgical outcome, need for revision surgery, an inability to regain preinjury level of function, DVT, PE, other medical complications, and possibly loss of life or limb. The patient voiced their understanding that while these are the most common complications other less common complications are possible. They provided both their verbal and written consent to go forward with surgery. Description of Procedure: The patient was identified in preoperative holding and the correct operative extremity was verified and marked with a marker. I reviewed the consent form with the patient at length. All of their questions were answered. The patient was given a block by anesthesia. They were then brought back to the operating room. They were transferred onto the operating room table where a general anesthetic, preoperative antibiotics, and tranexamic acid were administered by anesthesia. A tourniquet was applied to the proximal aspect of the operative extremity. The contralateral extremity was padded under the heel and secured to the operating room table with a nonsterile blue towel and tape. The ipsilateral arm was carefully draped across the patient's chest and secured with a pillow and foam. A post was applied over the lateral aspect of the ipsilateral thigh and a bolster was placed under the ipsilateral foot. I verified that the operative extremity was stable and the knee was flexed to 90. The operative extremity was then placed in a leg delgado, nonsterile drapes were applied, and the extremity was prepped and draped sterilely in the standard sterile fashion. Prior to starting surgery timeout was performed identifying the correct patient, operative extremity, and procedure. The leg was then elevated, exsanguinated with an Esmarch bandage, and the tourniquet was inflated. An anterior midline incision was made sharply with a scalpel. Once I had dissected deep to the superficial fascial layer medial and lateral flaps were elevated. A medial parapatellar arthrotomy was created. Upon opening the knee joint there were diffuse arthritic changes in all 3 compartments. The anterior horn of the medial meniscus were sharply released and a medial release was performed around the posterior medial corner of the knee to facilitate retractor placement. The fat pad was excised with electrocautery. The patella was found to be severely arthritic and a provisional cut was made with a sagittal saw to facilitate mobilization of the extensor mechanism during the procedure. Remnants of the ACL and PCL were then excised from the notch. 4 mm pins were then placed within the incision in the medial distal femur and proximal tibia. Arrays were applied to the pins and I verified they were completely tightened. The knee was then registered with the Swoopo robot and manipulations in implant position were made to balance the knee and opitmize implant position. Using the Mendoza robotic saw all cuts were made in accordance with our plan. After all bony fragments had been removed the cuts were verified with the planar probe. The tibia was then subluxed forward and sized. The knee was brought into flexion and a lamina consulting sales manager was placed to allow removal of the meniscal remnants both medially and laterally as well as posterior osteophytes. Local anesthetic was then infiltrated around the joint capsule. Trial implants were then placed within the knee. Range of motion and collateral ligament tension was then evaluated. Adjustments in implant size and position were then made accordingly. Once the knee was felt to be appropriately balanced the Mendoza pins were removed. The patella was then recut, sized, and punched. A trial patellar button was then placed. With the trial components in place, the patella tracked midline. The femur was then drilled and the trial component removed. The trial tibial component was then appropriately rotated, pinned, and prepared for the keel. All trial components were then removed from the knee. The knee was thoroughly irrigated with pulsatile lavage. Cement was prepared via vacuum mixing in a bowl on the back table. I then hand pressurized cement into the femur and tibia and placed the implants beginning with the tibial base tray and poly liner, femoral component, and finally the patellar button. All extruded cement was removed including from the pin sites. Once the cement had hardened the knee was evaluated one final time with the final polyethylene liner in place. The knee had full extension and flexion and felt stable to varus and valgus stress throughout the arc of motion. The tourniquet was released and with the tourniquet down the patella tracked midline. All bleeders were controlled with electrocautery. The knee was then soaked for 3 minutes with a dilute Betadine soak. The knee was thoroughly irrigated using 3 L of sterile saline and pulsatile lavage. A deep drain was placed. The extensor mechanism was then reapproximated using pop off Vicryl sutures followed by a running barbed suture. The knee was then closed in layers with a 0 strata fix for the deep fascial layer, 2-0 strata fix for the superficial subcutaneous layer and Monocryl and Steri-Strips for the skin. A sterile dressing and drain sponge were applied. I verified that all instrument, sponge, and sharp counts were correct. The patient was then transferred off the operating room table, extubated, and brought to recovery having tolerated the procedure well. Jazzy Coughlin PA-C was required as a skilled practice assistant due to the complexity of the procedure for patient positioning, draping, retraction, placement of hardware, and closure of wound. PLAN: The patient can weight-bear as tolerated on the operative extremity. DVT prophylaxis with aspirin 81 mg twice a day based on preoperative risk stratification. Follow-up in the office in 2 weeks for wound check and x-rays of the knee including an AP and lateral.
--- NOTE | 2021-12-13 15:53 | XR ---
Right knee HISTORY: Status post right knee arthroplasty 2 views the right knee Patient is status post right knee arthroplasty. There is anatomic alignment. Lucencies present within the soft tissues. Bone mineralization is reduced. Soft tissue swelling is suspected. There is overly ing artifact present. IMPRESSION: Orthopedic follow-up.
[2021-12-13 16:28] LABS: Glucose,Whole Blood 192 mg/dL (70-110)
[2021-12-13] MEDS: HYDROcodone/APAP 5-325MG 1 EACH TAB PO PRN (18:14)
--- NOTE | 2021-12-13 18:34 | P.ANPRN ---
Procedure Note - Anesthesia - Nerve Block Performed Right Adductor Canal Time Out Performed: Yes (:) Date of Procedure: 12/13/21 Procedure Start Time: Procedure Stop Time: Location of Patient: PreOp Indication: Acute Post-Operative Pain, Requested by Surgeon (Dr Lara) Sedation Type: Sedate with meaningful contact maintained Preparation: Sterile Prep Position: Supine Catheter: None Needle Types: Pajunk Needle Gauge: 21 Ultrasound used to visualize needle placement: Yes Ultrasound used to observe medication spread: Yes Injectate: 0.5% Ropivacaine (see comment for volume) (15cc) Blood Aspirated: No Pain Paresthesia on Injection Noted: No Resistance on Injection: Normal Image Stored and Saved: Yes Events: Uneventful and Well Tolerated
--- NOTE | 2021-12-13 18:36 | P.ANPRN ---
Procedure Note - Anesthesia - Nerve Block Performed Right iPack Time Out Performed: Yes Date of Procedure: 12/13/21 Procedure Start Time: 11:28 Procedure Stop Time: 11:34 Location of Patient: PreOp Indication: Acute Post-Operative Pain, Requested by Surgeon (Dr Lara) Sedation Type: Sedate with meaningful contact maintained Preparation: Sterile Prep Position: Supine Catheter: None Needle Types: Pajunk Needle Gauge: 21 Ultrasound used to visualize needle placement: Yes Ultrasound used to observe medication spread: Yes Injectate: 0.5% Ropivacaine (see comment for volume) (15cc +5cc PF normal saline) Blood Aspirated: No Pain Paresthesia on Injection Noted: No Resistance on Injection: Normal Image Stored and Saved: Yes Events: Uneventful and Well Tolerated
[2021-12-13 20:00] LABS: Glucose,Whole Blood 292 mg/dL (70-110)
[2021-12-13] MEDS: SENNOSIDES-DOCUSATE SODIUM 1 EACH TAB PO SCH (20:30)
[2021-12-13] MEDS: ASPIRIN 81 MG PO SCH (20:30)
[2021-12-14] MEDS: HYDROcodone/APAP 5-325MG 1 EACH TAB PO PRN ×4 (00:33→18:40)
[2021-12-14 07:12] LABS: Glucose,Whole Blood 148 mg/dL (70-110)
[2021-12-14] MEDS: ASPIRIN 81 MG PO SCH ×2 (07:19→20:43)
[2021-12-14] MEDS: LACTATED RINGERS 1,000 ML IV SCH (07:19)
--- NOTE | 2021-12-14 08:26 | P.DS ---
Providers Expected date of discharge: 12/14/21 Attending physician: Ricardo Lara Consults: 12/13/21 14:58 Consult Physician Routine Consulting Provider: Michael Mullins Consult Reason/Comments: medical management Do you want consulting provider notified?: Yes Primary care physician: Miguel Lewis MD Hospital Course: This is a 76-year-old female who has been followed in our office by Dr. Lara for continued complaints of right knee pain due to right knee osteoarthritis. Treatment options were discussed, and patient elected to undergo a right total knee arthroplasty. Patient was seen pre-operatively by Dr. Santiago and cleared for surgery. Patient underwent a right total knee arthroplasty on 12/13/[address] Lara. The procedure was performed without complication or sequelae. The patient is doing fairly well postoperatively. Vital signs and labs are stable on postoperative day #1. Patient was examined bedside this morning with Dr. Lara. Patient states she is overall doing very well and the pain in her right knee is well-controlled. She has been ambulating with a walker with minimal assistance. Patient is tolerating her diet well. Patient is comfortable being discharged home today. Patient denies chest pain, shortness of breath, nausea, vomiting, fevers, chills. On examination, the patient is sitting up in the bed in no apparent distress. She is alert and orientated 3. On inspection of the right knee, there is a clean, dry, intact Opsite dressing in place. There is no bleeding or drainage the dressing. Patient has good strength and ROM of the right ankle and toes. Motor and sensory function is intact of the right lower extremity. The dorsalis pedis pulse is easily palpable, the right lower extremity is warm and well perfused with brisk capillary refill. Calf is soft and non-tender to palpation. Patient is discharged home with home health care today in good condition, pending medical clearance. Patient will follow-up with Dr. Lara in the off ice in 2 weeks. Please see med rec for accurate list of discharge medication. Plan - Discharge Summary Discharge Rx Participant: Yes New Discharge Prescriptions: New HYDROcodone/APAP 5-325MG [[place] 5-325] 1 - 2 tab PO Q6HR PRN 32 Days #7 tab PRN Reason: Pain Omeprazole 40 mg PO DAILY 30 Days #30 cap Aspirin 81 mg PO BID 30 Days #60 tab Docusate [Colace] 100 mg PO BID #60 capsule Diclofenac Sodium [Voltaren] 75 mg PO BID 30 Days #60 tab No Action Rosuvastatin Calcium [Crestor] 10 mg PO HS Aspirin EC [Ecotrin Low Dose] 162 mg PO DAILY lisinopriL [Prinivil] 20 mg PO DAILY Latanoprost/Pf [Latanoprost 0.005% Eye Drop] 1 drop BOTH EYES HS Glimepiride [Amaryl] 1 mg PO QAM Dapagliflozin Propanediol [Farxiga] 10 mg PO DAILY sitaGLIPtin [Januvia] 50 mg PO DAILY Glimepiride [Amaryl] 2 mg PO HS Famotidine [Pepcid] 20 mg PO HS Acetaminophen [Tylenol Extra Strength] 500 mg PO Q6H PRN PRN Reason: Pain Metoprolol Tartrate [Lopressor] 12.5 mg PO DAILY Discharge Medication List Rosuvastatin Calcium [Crestor] 10 mg PO HS 10/02/14 [History] Aspirin EC [Ecotrin Low Dose] 162 mg PO DAILY 02/10/17 [History] Dapagliflozin Propanediol [Farxiga] 10 mg PO DAILY 07/13/19 [History] Glimepiride [Amaryl] 1 mg PO QAM 07/13/19 [History] Latanoprost/Pf [Latanoprost 0.005% Eye Drop] 1 drop BOTH EYES HS 07/13/19 [History] lisinopriL [Prinivil] 20 mg PO DAILY 07/13/19 [History] sitaGLIPtin [Januvia] 50 mg PO DAILY 04/13/20 [History] Acetaminophen [Tylenol Extra Strength] 500 mg PO Q6H PRN 12/07/21 [History] Famotidine [Pepcid] 20 mg PO HS 12/07/21 [History] Glimepiride [Amaryl] 2 mg PO HS 12/07/21 [History] Metoprolol Tartrate [Lopressor] 12.5 mg PO DAILY 12/07/21 [History] Aspirin 81 mg PO BID 30 Days #60 tab 12/14/21 [Rx] Diclofenac Sodium [Voltaren] 75 mg PO BID 30 Days #60 tab 12/14/21 [Rx] Docusate [Colace] 100 mg PO BID #60 capsule 09/22/22 [Rx] HYDROcodone/APAP 5-325MG [[place] 5-325] 1 - 2 tab PO Q6HR PRN 32 Days #7 tab 12/14/21 [Rx] Omeprazole 40 mg PO DAILY 30 Days #30 cap 12/14/21 [Rx] Follow up Appointment(s)/Referral(s): Ricardo Lara MD [Medical Doctor] - 2 Weeks Activity/Diet/Wound Care/Special Instructions: Weight bear to tolerance on operative extremity with a walker. Keep operative dressing intact until follow-up appointment in the office. Call the office if dressing becomes saturated or falls off. May shower over dressing. Take pain medications as prescribed. Take aspirin 81mg BID x 4 weeks for blood clot prevention. Follow-up in the office in two weeks with Dr. Lara. Call the office with any questions or concerns, Discharge Disposition: HOME WITH HOME HEALTH SERVICES
[2021-12-14] MEDS ORDERED: ACETAMINOPHEN TAB 500 MG TAB PO PRN (10:12)
[2021-12-14] MEDS ORDERED: PANTOPRAZOLE 40 MG/10 ML VIAL IVP SCH (10:30)
--- NOTE | 2021-12-14 10:30 | P.CONS ---
History of Present Illness - History of Present Illness This is a pleasant 76 years old female with past medical history of Diabetes Mellitus, GERD/Reflux, Hyperlipidemia, Hypertension, Osteoarthritis , history of open heart surgery about 5 years ago, her flight line mechanic was Dr. Mccormick who saw her and cleared her for the surgery about 2 weeks earlier. Patient underwent right knee arthroplasty and today is postoperative day #1. This morning she is complaining of from mild epigastric pain with some burping but no nausea vomiting. No diarrhea. No urinary complaints. No chest pain or dyspnea. The pain is nonradiating and she states that she had it before and was similar to her burning. Vitals stable, heart rate is 50, blood pressure 138/66, patient is afebrile. Hemoglobin A1c is 7.4% yesterday Review of Systems Review of systems CONSTITUTIONAL: No fever, no malaise, no fatigue. HEENT: No recent visual problems or hearing problems. Denied any sore throat. CARDIOVASCULAR: No orthopnea, PND, no palpitations, no syncope. PULMONARY: No shortness of breath, no cough, no hemoptysis. GASTROINTESTINAL: No diarrhea, no nausea, no vomiting, . Normoactive bowel sounds. NEUROLOGICAL: No headaches, no weakness, no numbness. HEMATOLOGICAL: Denies any bleeding or petechiae. GENITOURINARY: Denies any burning micturition, frequency, or urgency. MUSCULOSKELETAL/RHEUMATOLOGICAL: Denies any joint pain, swelling, or any muscle pain. ENDOCRINE: Denies any polyuria or polydipsia. Past Medical History Past Medical History: Diabetes Mellitus, Eye Disorder, GERD/Reflux, Hyperlipidemia, Hypertension, Osteoarthritis (OA) Additional Past Medical History / Comment(s): Hx stomach ulcers years ago, glaucoma History of Any Multi-Drug Resistant Organisms: None Reported Past Surgical History: Appendectomy, Cardiac Valve Replacement, Hysterectomy, Orthopedic Surgery Additional Past Surgical History / Comment(s): Right shoulder surgery, bilateral cataract surgery, stents placed in eyes for glaucoma, colonoscopy, right knee arthroscopy, aortic valve replaced 5 yrs. ago Past Anesthesia/Blood Transfusion Reactions: No Reported Reaction Past Psychological History: No Psychological Hx Reported Smoking Status: Former smoker Past Alcohol Use History: Rare Additional Past Alcohol Use History / Comment(s): Smoked from her 20's to 40's, less than 1/2 ppd, quit in 1987. Past Drug Use History: None Reported - Past Family History Mother Family Medical History: Cancer Father Family Medical History: Cancer Medications and Allergies Home Medications Medication Instructions Recorded Confirmed Type Rosuvastatin Calcium [Crestor] 10 mg PO HS 10/02/14 12/07/21 History Aspirin EC [Ecotrin Low Dose] 162 mg PO DAILY 02/10/17 12/07/21 History Dapagliflozin Propanediol [Farxiga] 10 mg PO DAILY 07/13/19 12/07/21 History Glimepiride [Amaryl] 1 mg PO QAM 07/13/19 12/07/21 History Latanoprost/Pf [Latanoprost 0.005% 1 drop BOTH EYES HS 07/13/19 12/07/21 History Eye Drop] lisinopriL [Prinivil] 20 mg PO DAILY 07/13/19 12/07/21 History sitaGLIPtin [Januvia] 50 mg PO DAILY 04/13/20 12/07/21 History Acetaminophen [Tylenol Extra 500 mg PO Q6H PRN 12/07/21 12/07/21 History Strength] Famotidine [Pepcid] 20 mg PO HS 12/07/21 12/07/21 History Glimepiride [Amaryl] 2 mg PO HS 12/07/21 12/07/21 History Metoprolol Tartrate [Lopressor] 12.5 mg PO DAILY 12/07/21 12/07/21 History Aspirin 81 mg PO BID 30 Days #60 tab 12/14/21 Rx Diclofenac Sodium [Voltaren] 75 mg PO BID 30 Days #60 tab 12/14/21 Rx Docusate [Colace] 100 mg PO BID #60 capsule 12/14/21 Rx HYDROcodone/APAP 5-325MG [[place] 1 - 2 tab PO Q6HR PRN 32 Days #7 12/14/21 Rx 5-325] tab Omeprazole 40 mg PO DAILY 30 Days #30 cap 12/14/21 Rx Allergies Allergy/AdvReac Type Severity Reaction Status Date / Time No Known Allergies Allergy Verified 12/13/21 10:22 Physical Exam Vitals: Vital Signs Temp Pulse Pulse Pulse Resp BP BP 12/14/21 08:00 98.2 F 50 L 17 138/66 12/14/21 01:58 97.8 F 52 L 18 146/68 12/13/21 20:00 16 12/13/21 17:06 65 162/81 12/13/21 16:50 49 L 149/73 12/13/21 16:35 54 L 154/71 12/13/21 16:21 98.0 F 55 L 16 154/66 12/13/21 15:40 53 L 16 159/71 12/13/21 15:24 68 16 164/70 12/13/21 15:09 74 16 174/76 12/13/21 14:54 96.9 F L 80 16 148/76 12/13/21 11:35 48 L 16 181/79 12/13/21 10:34 97.5 F L 58 L 16 196/85 Pulse Ox 12/14/21 08:00 94 L 12/14/21 01:58 94 L 12/13/21 20:00 12/13/21 17:06 12/13/21 16:50 12/13/21 16:35 12/13/21 16:21 94 L 12/13/21 15:40 93 L 12/13/21 15:24 94 L 12/13/21 15:09 94 L 12/13/21 14:54 94 L 12/13/21 11:35 97 12/13/21 10:34 97 Intake and Output 12/13/21 12/14/21 12/14/21 22:59 06:59 14:59 Intake Total 1530 Output Total 550 1250 Balance -550 280 Intake: Intake, IV Titration 250 Amount Lactated Ringers 1,000 ml 200 @ 20 mls/hr IV .Q24H NEERAJ Rx#:[id number] ceFAZolin 2 gm In Sodium 50 Chloride 0.9% 50 ml @ 100 mls/hr IVPB Q8H NEERAJ Rx#: [id number] Oral 1280 Output: Urine 550 1250 Other: # Voids 3 Weight 77.1 kg GENERAL: The patient is alert and oriented x3, not in any acute distress. Well developed, well nourished. HEENT: Pupils are round and equally reacting to light. EOMI. No scleral icterus. No conjunctival pallor. Normocephalic, atraumatic. No pharyngeal erythema. No thyromegaly. CARDIOVASCULAR: S1 and S2 present. No murmurs, rubs, or gallops. PULMONARY: Chest is clear to auscultation, no wheezing or crackles. ABDOMEN: Soft, nontender, nondistended, normoactive bowel sounds. No palpable organomegaly. -MUSCULOSKELETAL: No joint swelling or deformity. Right knee wound with a dressing and a Place EXTREMITIES: No cyanosis, clubbing, or pedal edema. NEUROLOGICAL: Gross neurological examination did not reveal any focal deficits. SKIN: No rashes. no petechiae. Results Labs: Abnormal Lab Results - Last 24 Hours (Table) 12/13/21 12/13/21 12/13/21 Range/Units 10:56 10:59 16:26 POC Glucose (mg/dL) 145 H 192 H (70-110) mg/dL Hemoglobin A1c 7.4 H (0.0-6.0) % 12/13/21 12/14/21 Range/Units 19:58 07:11 POC Glucose (mg/dL) 292 H 148 H (70-110) mg/dL Hemoglobin A1c (0.0-6.0) % Assessment and Plan Assessment: Epigastric abdominal pain postoperatively, presented to her previous out cardiac causes Advanced osteoarthritis status post right knee arthroplasty Hypertension Hyperlipidemia Weakness mellitus History of open heart surgery 5 years ago Plan: This is a pleasant 76 years old female with right knee placement this procedure now with epigastric abdominal pain Most likely related to her history of peptic ulcer disease, she has been evaluated by GI service 2 years ago for similar complaint. However because of her multiple risk factor and extensive heart disease history recommended to rule out cardiac causes with EKG and troponin 2 and to see if her pain resolved with Protonix. Otherwise resume her diabetes and blood pressure medication with close monitoring. Labs and medication were reviewed.. Continue same treatment. Continue with symptomatic treatment. Resume home medication. Monitor lytes and vitals. DVT and GI prophylaxis. Further recommendations as per clinical course of the patient DVT prophylaxis: Per surgery team GI Prophylaxis: Protonix thank you for consulting us, we will follow up with her
[2021-12-14 10:45] LABS: Basophils # (A) 0.02 X 10*3/uL (0.00-0.10); Basophils % (A) 0.1 %; Eosinophils # (A) 0 X 10*3/uL (0.04-0.35); Eosinophils % (A) 0 %; HCT 43.9 % (37.2-46.3); HGB 14.3 g/dL (12.0-15.0); Immature Grans, Automated 0.6 %; Lymphocytes # (A) 0.68 X 10*3/uL (0.90-5.00); Lymphocytes % (A) 4.3 %; MCH 29.7 pg (27.0-32.0); MCHC 32.6 g/dL (32.0-37.0); MCV 91.1 fL (80.0-97.0); Mean Platelet Volume 11.6 fL (9.5-12.2); Monocytes # (A) 0.73 X 10*3/uL (0.20-1.00); Monocytes % (A) 4.6 %; NRBC Per 100 WBC 0 /100 WBCS (0.0-0.0); Neutrophils # (A) 14.33 X 10*3/uL (1.80-7.70); Neutrophils % (A) 90.4 %; Platelet Count 282 X 10*3/uL (140-440); RBC 4.82 X 10*6/uL (4.10-5.20); RDW 12.9 % (11.5-14.5); WBC 15.85 X 10*3/uL (4.50-10.00)
[2021-12-14 11:42] LABS: Glucose,Whole Blood 153 mg/dL (70-110)
[2021-12-14] MEDS ORDERED: DEXTROSE 50% SYRINGE 50 ML IVP PRN ×2 (11:49)
[2021-12-14] MEDS: INSULIN ASPART (NovoLOG) 100 UNIT/ML VIAL SQ SCH ×3 (12:09→20:43)
[2021-12-14 13:24] LABS: African American GFR (CKD) 85 (>60 ml/min/1.73 sqM); Anion Gap 9 mmol/L; Blood Urea Nitrogen 23 mg/dL (7-17); Calcium 8.7 mg/dL (8.4-10.2); Carbon Dioxide 25 mmol/L (22-30); Chloride 101 mmol/L (98-107); Glucose 157 mg/dL (74-99); Non-African American GFR(CKD) 74 (>60 ml/min/1.73 sqM); Potassium 4.4 mmol/L (3.5-5.1); Sodium 135 mmol/L (137-145)
[2021-12-14 16:47] LABS: Glucose,Whole Blood 150 mg/dL (70-110)
[2021-12-14 20:28] LABS: Glucose,Whole Blood 216 mg/dL (70-110)
[2021-12-14] MEDS: SENNOSIDES-DOCUSATE SODIUM 1 EACH TAB PO SCH (20:43)
[2021-12-14] MEDS ORDERED: ATORVASTATIN 20 MG TAB PO SCH (21:00)
[2021-12-14] MEDS ORDERED: FAMOTIDINE 20 MG TAB PO SCH (21:00)
[2021-12-14] MEDS ORDERED: GLIMEPIRIDE 2 MG TAB PO SCH (21:00)
[2021-12-15] MEDS: HYDROcodone/APAP 5-325MG 1 EACH TAB PO PRN ×3 (00:09→13:54)
[2021-12-15 04:15] VITALS: RESP 17
[2021-12-15] MEDS: LACTATED RINGERS 1,000 ML IV SCH (06:06)
[2021-12-15 07:24] LABS: Glucose,Whole Blood 161 mg/dL (70-110)
[2021-12-15] MEDS ORDERED: PANTOPRAZOLE 40 MG TABLET PO SCH (07:30)
[2021-12-15] MEDS: INSULIN ASPART (NovoLOG) 100 UNIT/ML VIAL SQ SCH ×2 (07:34→11:24)
[2021-12-15] MEDS: ASPIRIN 81 MG PO SCH (07:34)
[2021-12-15 07:48] VITALS: BP 159/71; PULSE 57; TEMP 97.8
[2021-12-15] MEDS ORDERED: LINAGLIPTIN 5 MG TABLET PO SCH (09:00)
[2021-12-15] MEDS ORDERED: lisinopriL 20 MG TAB PO SCH (09:00)
[2021-12-15] MEDS ORDERED: GLIMEPIRIDE 1 MG TAB PO SCH (09:00)
[2021-12-15] MEDS ORDERED: DAPAGLIFLOZIN PROPANEDIOL 10 MG TABLET PO SCH (09:00)
--- NOTE | 2021-12-15 09:53 | P.DS ---
Providers Date of admission: 12/15/21 07:51 Attending physician: Ricardo Lara Consults: 12/13/21 14:58 Consult Physician Routine Consulting Provider: Michael Mullins Consult Reason/Comments: medical management Do you want consulting provider notified?: Yes Primary care physician: Miguel Lewis MD Hospital Course: This is a 76-year-old female who has been followed in our office by Dr. Lara for continued complaints of right knee pain due to right knee osteoarthritis. Treatment options were discussed, and patient elected to undergo a right total knee arthroplasty. Patient was seen pre-operatively by Dr. Santiago and cleared for surgery. Patient underwent a right total knee arthroplasty on 12/13/[address] Lara. The procedure was performed without complication or sequelae. The patient is doing fairly well postoperatively. Vital signs and labs are stable on postoperative day #2. Per Dr. Chery, patient was kept for observation an additional day to rule-out cardiac causes of chest pain. Patient was examined bedside this morning by Dr. Lara. Right knee pain is well-controlled. She is ambulating with a walker with minimal assistance. She is comfortable being discharged home today. On examination of the right knee, there is a clean, dry, intact Opsite dressing in place. There is no bleeding or drainage the dressing. Patient has good strength and ROM of the right ankle and toes. Motor and sensory function is intact of the right lower extremity. The dorsalis pedis pulse is easily palpable, the right lower extremity is warm and well perfused with brisk capillary refill. Calf is soft and non-tender to palpation. Patient is discharged home with home health care today in good condition, pending medical clearance. Patient will follow-up with Dr. Lara in the office in 2 weeks. Please see med rec for accurate list of discharge medication. Plan - Discharge Summary Discharge Rx Participant: Yes New Discharge Prescriptions: New HYDROcodone/APAP 5-325MG [[place] 5-325] 1 - 2 tab PO Q6HR PRN 32 Days #7 tab PRN Reason: Pain Omeprazole 40 mg PO DAILY 30 Days #30 cap Aspirin 81 mg PO BID 30 Days #60 tab Docusate [Colace] 100 mg PO BID #60 capsule Diclofenac Sodium [Voltaren] 75 mg PO BID 30 Days #60 tab No Action Rosuvastatin Calcium [Crestor] 10 mg PO HS Aspirin EC [Ecotrin Low Dose] 162 mg PO DAILY lisinopriL [Prinivil] 20 mg PO DAILY Latanoprost/Pf [Latanoprost 0.005% Eye Drop] 1 drop BOTH EYES HS Glimepiride [Amaryl] 1 mg PO QAM Dapagliflozin Propanediol [Farxiga] 10 mg PO DAILY sitaGLIPtin [Januvia] 50 mg PO DAILY Glimepiride [Amaryl] 2 mg PO HS Famotidine [Pepcid] 20 mg PO HS Acetaminophen [Tylenol Extra Strength] 500 mg PO Q6H PRN PRN Reason: Pain Metoprolol Tartrate [Lopressor] 12.5 mg PO DAILY Discharge Medication List Rosuvastatin Calcium [Crestor] 10 mg PO HS 10/02/14 [History] Aspirin EC [Ecotrin Low Dose] 162 mg PO DAILY 02/10/17 [History] Dapagliflozin Propanediol [Farxiga] 10 mg PO DAILY 07/13/19 [History] Glimepiride [Amaryl] 1 mg PO QAM 07/13/19 [History] Latanoprost/Pf [Latanoprost 0.005% Eye Drop] 1 drop BOTH EYES HS 07/13/19 [History] lisinopriL [Prinivil] 20 mg PO DAILY 07/13/19 [History] sitaGLIPtin [Januvia] 50 mg PO DAILY 04/13/20 [History] Acetaminophen [Tylenol Extra Strength] 500 mg PO Q6H PRN 12/07/21 [History] Famotidine [Pepcid] 20 mg PO HS 12/07/21 [History] Glimepiride [Amaryl] 2 mg PO HS 12/07/21 [History] Metoprolol Tartrate [Lopressor] 12.5 mg PO DAILY 12/07/21 [History] Aspirin 81 mg PO BID 30 Days #60 tab 12/14/21 [Rx] Diclofenac Sodium [Voltaren] 75 mg PO BID 30 Days #60 tab 12/14/21 [Rx] Docusate [Colace] 100 mg PO BID #60 capsule 12/14/21 [Rx] HYDROcodone/APAP 5-325MG [[place] 5-325] 1 - 2 tab PO Q6HR PRN 32 Days #7 tab 12/14/21 [Rx] Omeprazole 40 mg PO DAILY 30 Days #30 cap 12/14/21 [Rx] Follow up Appointment(s)/Referral(s): [facility], [NON-STAFF] - 1-2 Days ([facility] will call you to schedule your in home physical therapy visits. ) Ricardo Lara MD [Medical Doctor] - 2 Weeks Activity/Diet/Wound Care/Special Instructions: Weight bear to tolerance on operative extremity with a walker. Keep operative dressing intact until follow-up appointment in the office. Call the office if dressing becomes saturated or falls off. May shower over dressing. Take pain medications as prescribed. Take aspirin 81mg BID x 4 weeks for blood clot prevention. Follow-up in the office in two weeks with Dr. Lara. Call the office with any questions or concerns, Heart healthy diet, low carbohydrate diet activity is restricted till you see your doctor we recommend to check your glucose 4 times a day, before each meal and at bedtime, the results in a log book and bring it to DrFrederick on your appointment date if your glucose less than 70 more than 400, and call 911 on come to emergency room
--- NOTE | 2021-12-15 10:31 | P.PN ---
Subjective This is a pleasant 76 years old female with past medical history of Diabetes Mellitus, GERD/Reflux, Hyperlipidemia, Hypertension, Osteoarthritis , history of open heart surgery about 5 years ago, her measurement operator was Dr. Mccormick who saw her and cleared her for the surgery about 2 weeks earlier. Patient underwent right knee arthroplasty and today is postoperative day #1. This morning she is complaining of from mild epigastric pain with some burping but no nausea vomiting. No diarrhea. No urinary complaints. No chest pain or dyspnea. The pain is nonradiating and she states that she had it before and was similar to her burning. Vitals stable, heart rate is 50, blood pressure 138/66, patient is afebrile. Hemoglobin A1c is 7.4% yesterday 12/15/2021 Patient today is as symptomatic, her epigastric abdominal pain 1-2/10 in severity she had yesterday is completely resolved today. She tolerates diet well. She denies any abdominal pain or tenderness, her abdomen soft and she has no problem with her bowel movement. No other complaints, no chest pain or dyspnea. No headache or weakness or numbness. No dizziness. No urinary complaints and no fever. Patient is willing and feels she is ready to go home today. Hemodynamically She's been stable. 2 troponins are negative. EKG showing sinus bradycardia at 45 with criteria for LVH and a QTC [address]-T changes. Patient isn't known to have bradycardia and its similar to EKG done last October. Patient has already seen her measurement operator Dr. Mccormick about 2 weeks prior to hospitalization who cleared her for proceeding with the surgery she had during this time. Most likely patient has epigastric pain related to her GI system, she states that she has similar pain about 2 years ago when she's been seen by Dr. Brady and also she'll follow up with dago Teresa. She says C her about 6 months ago and she supposed to see her soon. Her sugars controlled. No other labs from today. She has mild leukocytosis from yesterday most likely reactive, no signs or symptoms of infection and no need for antibiotics. Recommend to keep monitoring WBC closely Patient was instructed to follow up with Jigna Teresa in 2 weeks and she verbalized understanding and acceptance. Other than that patient has been medically stable. Objective - Vital Signs Vital signs: Vital Signs Temp 97.8 F 12/15/21 07:46 Pulse 57 L 12/15/21 07:46 Resp 17 12/15/21 07:46 BP 159/71 12/15/21 07:46 Pulse Ox 98 12/15/21 07:46 FiO2 Intake & Output 12/14/21 12/15/21 12/15/21 18:59 06:59 18:59 Intake Total 480 Balance 480 Intake: Oral 480 Other: Voiding Method Diaper # Voids 4 2 - Exam GENERAL: The patient is alert and oriented x3, not in any acute distress. Well developed, well nourished. HEENT: Pupils are round and equally reacting to light. EOMI. No scleral icterus. No conjunctival pallor. Normocephalic, atraumatic. No pharyngeal erythema. No thyromegaly. CARDIOVASCULAR: S1 and S2 present. No murmurs, rubs, or gallops. PULMONARY: Chest is clear to auscultation, no wheezing or crackles. ABDOMEN: Soft, nontender, nondistended, normoactive bowel sounds. No palpable organomegaly. -MUSCULOSKELETAL: No joint swelling or deformity. Right knee wound with a dressing and a Place EXTREMITIES: No cyanosis, clubbing, or pedal edema. NEUROLOGICAL: Gross neurological examination did not reveal any focal deficits. SKIN: No rashes. no petechiae. - Labs CBC & Chem 7: 12/14/21 06:37 12/14/21 12:27 Labs: Abnormal Lab Results - Last 24 Hours (Table) 12/14/21 12/14/21 12/14/21 Range/Units 06:37 11:40 12:27 WBC 15.85 H (4.50-10.00) X 10*3/uL Immature Gran # 0.09 H (0.00-0.04) X 10*3/uL Neutrophils # 14.33 H (1.80-7.70) X 10*3/uL Lymphocytes # 0.68 L (0.90-5.00) X 10*3/uL Eosinophils # 0 L (0.04-0.35) X 10*3/uL Sodium 135 L (137-145) mmol/L BUN 23 H (7-17) mg/dL Glucose 157 H (74-99) mg/dL POC Glucose (mg/dL) 153 H (70-110) mg/dL 12/14/21 12/14/21 12/15/21 Range/Units 16:45 20:24 07:22 WBC (4.50-10.00) X 10*3/uL Immature Gran # (0.00-0.04) X 10*3/uL Neutrophils # (1.80-7.70) X 10*3/uL Lymphocytes # (0.90-5.00) X 10*3/uL Eosinophils # (0.04-0.35) X 10*3/uL Sodium (137-145) mmol/L BUN (7-17) mg/dL Glucose (74-99) mg/dL POC Glucose (mg/dL) 150 H 216 H 161 H (70-110) mg/dL Assessment and Plan Assessment: Epigastric abdominal pain postoperatively, most likely related to her GI system, he has been seen by Jigna Teresa before. Completely resolved Advanced osteoarthritis status post right knee arthroplasty Hypertension Hyperlipidemia Weakness mellitus History of open heart surgery 5 years ago Plan: This is a pleasant 76 years old female with right knee placement this procedure now with epigastric abdominal pain Abdominal pain completely resolved, no other complaints and patient is willing to go home today. We recommend patient to follow-up with PCP in one week and Jigna Grove in 2 weeks, patient verbalized understanding and acceptance I agree with starting omeprazole upon discharge She can hold Pepcid as stated. Labs and medication were reviewed.. Continue same treatment. Continue with symptomatic treatment. Resume home medication. Monitor lytes and vitals. DVT and GI prophylaxis. Further recommendations as per clinical course of the patient DVT prophylaxis: Per surgery team GI Prophylaxis: Protonix thank you for consulting us, please feel free to contact us for any further question
[2021-12-15 11:23] LABS: Glucose,Whole Blood 131 mg/dL (70-110)
== END 2021-12-15 14:13 | disposition home health service (06) ==
LOC: OR 09:36 → 4SSUR 14:50 → OR 12-15 07:51
PROVIDERS: ADMIT Orthopaedic Surgery; ATTEND Orthopaedic Surgery
DX: M17.11 Unilateral primary osteoarthritis, right knee (principal); M25.761 Osteophyte, right knee; R10.13 Epigastric pain; R53.1 Weakness; G89.18 Other acute postprocedural pain; E11.9 Type 2 diabetes mellitus without complications; I25.10 Atherosclerotic heart disease of native coronary artery without angina pectoris; K21.9 Gastro-esophageal reflux disease without esophagitis; E78.5 Hyperlipidemia, unspecified; I10 Essential (primary) hypertension; Z95.2 Presence of prosthetic heart valve; Z87.891 Personal history of nicotine dependence; Z79.82 Long term (current) use of aspirin; Z79.84 Long term (current) use of oral hypoglycemic drugs; Z79.899 Other long term (current) drug therapy; Z87.11 Personal history of peptic ulcer disease
CPT/HCPCS: 93005; 97116; 97161; 64447; 64999; 76942; 80048; 84484 ×2; 85025; 83036; 73560; 27447; G0378; C1776; C1713; J2250; J0171; J1100; J0690 ×2; J2405; J3010; J1885 ×2; J2795; J0735; C9113; J1170

== ENCOUNTER → 2022-06-12 | Outpatient (CLI) | payer MEDICARE ==
--- NOTE | 2022-06-13 07:58 | MM ---
Reason for Exam: Screening (asymptomatic). Last mammogram was performed 1 year(s) and 1 month(s) ago. Patient History: Menarche at age 14. First Full-Term at age 21. Left ovary removed at age 42. Right ovary removed at age 42. Hysterectomy at age 42. Postmenopausal. Estrogen for 7 years from age 42 until age 49. Maternal cousin had breast cancer, age 50. Mother had breast cancer, age 78. Risk Values: Smiley 5 year model risk: 3.4%. NCI Lifetime model risk: 6.8%. Prior Study Comparison: 06/19/2017 Bilateral Screening Mammogram, [facility]. 07/30/2018 Bilateral Diagnostic Mammogram, [facility]. 05/18/2021 Bilateral Screening Mammogram, [facility]. Tissue Density: There are scattered fibroglandular densities. Findings: Analyzed By CAD. There is no suspicious group of microcalcifications or new suspicious mass in either breast. Overall Assessment: Benign, BI-RAD 2 Management: Screening Mammogram of both breasts in 1 year. A clinical breast exam by your physician is recommended on an annual basis and results should be correlated with mammographic findings. Electronically signed and approved by: Tani Bryant M.D. Radiologis
== END | disposition home or self-care (01) ==
LOC: RADMAMWWP 08:55
PROVIDERS: ATTEND Family Medicine
DX: Z12.31 Encounter for screening mammogram for malignant neoplasm of breast (principal); Z78.0 Asymptomatic menopausal state; Z80.3 Family history of malignant neoplasm of breast
CPT/HCPCS: 77063; 77067

== ENCOUNTER → 2022-11-16 | Outpatient (CLI) | payer MEDICARE ==
[2022-11-17 01:27] LABS: ALT 23 U/L (8-44); AST 21 U/L (13-35); Chol/HDL Ratio 2.94 Ratio; LDL Cholesterol,Calculated 76.1 mg/dL (0.0-131.0)
== END | disposition home or self-care (01) ==
LOC: LABWHC1 10:08
PROVIDERS: ATTEND Internal Medicine Interventional Cardiology
DX: E78.2 Mixed hyperlipidemia (principal)
CPT/HCPCS: 36415; 80061; 84450; 84460

== ENCOUNTER 2023-04-30 04:00 | Emergency (ER) | payer MEDICARE ==
--- NOTE | 2023-04-30 04:40 | ED ---
General Adult HPI - General Chief complaint: Recheck/Abnormal Lab/Rx Stated complaint: high BP, Time Seen by Provider: 04/30/23 04:26 Source: patient Mode of arrival: ambulatory Limitations: no limitations - History of Present Illness Initial comments: This patient is a 78-year-old woman who presents with a complaint that she is just not feeling well. She states that if she has to describe the symptoms she feels prickly all over. She feels fatigued. She denies any pain. There is no dyspnea. She has not noted fever or chills, cough or any infectious symptoms. She states that she took her blood pressure at home and it was 180/100. -: hour(s) Severity scale (1-10): 0 Consistency: constant Improves with: none Worsens with: none Associated Symptoms: denies other symptoms Treatments Prior to Arrival: none - Related Data Home Medications Medication Instructions Recorded Confirmed Rosuvastatin Calcium [Crestor] 10 mg PO HS 10/02/14 12/07/21 Dapagliflozin Propanediol [Farxiga] 10 mg PO DAILY 07/13/19 12/07/21 Glimepiride [Amaryl] 1 mg PO QAM 07/13/19 12/07/21 Latanoprost/Pf [Latanoprost 0.005% 1 drop BOTH EYES HS 07/13/19 12/07/21 Eye Drop] lisinopriL [Prinivil] 20 mg PO DAILY 07/13/19 12/07/21 sitaGLIPtin [Januvia] 50 mg PO DAILY 04/13/20 12/07/21 Acetaminophen [Tylenol Extra 500 mg PO Q6H PRN 12/07/21 12/07/21 Strength] Glimepiride [Amaryl] 2 mg PO HS 12/07/21 12/07/21 Previous Rx's Medication Instructions Recorded Aspirin 81 mg PO BID 30 Days #60 tab 12/14/21 Diclofenac Sodium [Voltaren] 75 mg PO BID 30 Days #60 tab 12/14/21 Docusate [Colace] 100 mg PO BID #60 capsule 12/14/21 HYDROcodone/APAP 5-325MG [[place] 1 - 2 tab PO Q6HR PRN 32 Days #7 12/14/21 5-325] tab Omeprazole 40 mg PO DAILY 30 Days #30 cap 12/14/21 Allergies Allergy/AdvReac Type Severity Reaction Status Date / Time No Known Allergies Allergy Verified 04/30/23 04:13 Review of Systems ROS Statement: Those systems with pertinent positive or pertinent negative responses have been documented in the HPI. ROS Other: All systems not noted in ROS Statement are negative. Constitutional: Reports: weakness. Denies: fever, chills Eyes: Denies: vision change Respiratory: Denies: cough, dyspnea Cardiovascular: Denies: chest pain, palpitations, orthopnea, edema, syncope Gastrointestinal: Denies: abdominal pain, nausea, vomiting, diarrhea Genitourinary: Denies: dysuria, hematuria Musculoskeletal: Denies: back pain Skin: Denies: rash Neurological: Denies: headache, weakness Past Medical History Past Medical History: Diabetes Mellitus, Hyperlipidemia, Hypertension, Osteoarthritis (OA) Additional Past Medical History / Comment(s): Hx stomach ulcers years ago. History of Any Multi-Drug Resistant Organisms: None Reported Past Surgical History: Appendectomy, Cardiac Valve Replacement, Coronary Bypass/CABG, Hysterectomy, Orthopedic Surgery Additional Past Surgical History / Comment(s): Right shoulder surgery, bilateral cataract surgery, stents placed in eyes, colonoscopy, right knee arthroscopy. Past Anesthesia/Blood Transfusion Reactions: No Reported Reaction Past Psychological History: No Psychological Hx Reported Smoking Status: Former smoker Past Alcohol Use History: Rare Past Drug Use History: None Reported - Past Family History Mother Family Medical History: Cancer Father Family Medical History: Cancer General Exam Limitations: no limitations General appearance: alert, in no apparent distress Head exam: Present: atraumatic, normocephalic Eye exam: Present: normal appearance. Absent: scleral icterus, conjunctival injection ENT exam: Present: normal oropharynx Neck exam: Present: normal inspection, full ROM Respiratory exam: Present: normal lung sounds bilaterally. Absent: respiratory distress, wheezes, rales, rhonchi, stridor Cardiovascular Exam: Present: regular rate, normal rhythm, normal heart sounds. Absent: systolic murmur, diastolic murmur, rubs, gallop GI/Abdominal exam: Present: soft. Absent: distended, tenderness, guarding, rebound, rigid, mass Extremities exam: Present: normal inspection, normal capillary refill. Absent: pedal edema, calf tenderness Back exam: Present: normal inspection. Absent: CVA tenderness (R), CVA tenderness (L) Neurological exam: Present: alert, oriented X3. Absent: motor sensory deficit Skin exam: Present: warm, dry, intact, normal color. Absent: rash Course Vital Signs 04/30/23 04/30/23 04/30/23 04:11 04:31 05:36 Temperature 98.2 F Pulse Rate 58 L 54 L 45 L Respiratory 20 18 18 Rate Blood Pressure 188/81 183/70 189/65 O2 Sat by Pulse 97 97 97 Oximetry 04/30/23 04/30/23 04/30/23 06:00 06:43 08:15 Temperature Pulse Rate 50 L 44 L 44 L Respiratory 18 16 16 Rate Blood Pressure 131/59 114/55 129/65 O2 Sat by Pulse 95 95 97 Oximetry EKG Findings - EKG Comments: EKG Findings:: Lateral T inversion - EKG Results: EKG: interpreted by ZULEIMA, sinus rhythm EKG shows: bradycardia (Rate 50 bpm) - Blocks, [place], Hypertrophy, ST Abn: AV and intraventricular conduction: intraventricular conduction delay Medical Decision Making - Medical Decision Making This patient is a 78-year-old woman who presents with complaint that she was just not feeling her usual self and that her blood pressure was found to be high when she checked at home. The patient's physical exam is unremarkable. The workup here is unremarkable as well. She did receive dose of clonidine for the elevated blood pressure and her blood pressure following that was borderline at approximately 105/50. I went and reevaluated the patient and she was feeling well, wanting to go home, the prickly sensation had resolved. And sitting up at the bedside she was lightheaded and therefore she is given 500 cc of bolus and pending reevaluation at time of shift change. Was pt. sent in by a medical professional or institution (, PA, [employer], urgent care, hospital, or alf...) When possible be specific @ -[No] Did you speak to anyone other than the patient for history (EMS, parent, family, police, friend...)? What history was obtained from this source @ -[The patient's son contributed to history Did you review nursing and triage notes (agree or disagree)? Why? @ -[I reviewed and agree with nursing and triage notes] Were old charts reviewed (outside hosp., previous admission, EMS record, old EKG, old radiological studies, urgent care reports/EKG's, alf records)? Report findings @ -[No old charts were reviewed] Differential Diagnosis (chest pain, altered mental status, abdominal pain women, abdominal pain men, vaginal bleeding, weakness, fever, dyspnea, syncope, heada nhi, dizziness, GI bleed, back pain, seizure, CVA, palpatations, mental health, musculoskeletal)? @ -[Differential Weakness: Hypoglycemia, shock, sepsis, hyponatremia, anemia, infection, FL, ETOH, adverse medicine reaction, overdose, stroke, this is not meant to be an all-inclusive list. EKG interpreted by me (3pts min.). @ -[I interpreted as above X-rays interpreted by me (1pt min.). @ -[None done] CT interpreted by me (1pt min.). @ -[None done] U/S interpreted by me (1pt. min.). @ -[None done] What testing was considered but not performed or refused? (CT, X-rays, U/S, labs)? Why? @ -[None] What meds were considered but not given or refused? Why? @ -[None] Did you discuss the management of the patient with other professionals (professionals i.e. , PA, [employer], lab, RT, psych nurse, home health care social worker, tin stacker, teacher, public safety officer, heel caser)? Give summary @ -[No] Was smoking cessation discussed for >3mins.? @ -[No] Was critical care preformed (if so, how long)? @ -[No] Were there social determinants of health that impacted care today? How? (Homelessness, low income, unemployed, alcoholism, drug addiction, transportation, low edu. Level, literacy, decrease access to med. care, [facility], rehab)? @ -[No] Was there de-escalation of care discussed even if they declined (Discuss DNR or withdrawal of care, Hospice)? DNR status @ -[No] What co-morbidities impacted this encounter? (DM, HTN, Smoking, COPD, CAD, Cancer, CVA, ARF, Chemo, Hep., AIDS, mental health diagnosis, sleep apnea, morbid obesity)? @ -[None] Was patient admitted / discharged? Hospital course, mention meds given and route, prescriptions, significant lab abnormalities, going to OR and other pertinent info. @ -[See above, patient pending results of fluid bolus with expectation of going home. - Lab Data Result diagrams: 04/30/23 04:43 04/30/23 04:43 Lab Results 04/30/23 04/30/23 04/30/23 Range/Units 04:43 04:43 04:43 WBC 5.5 (3.8-10.6) k/uL RBC 5.22 (3.80-5.40) m/uL Hgb 16.0 (11.4-16.0) gm/dL Hct 47.9 H (34.0-46.0) % MCV 91.6 (80.0-100.0) fL MCH 30.7 (25.0-35.0) pg MCHC 33.5 (31.0-37.0) g/dL RDW 13.0 (11.5-15.5) % Plt Count 224 (150-450) k/uL MPV 8.3 Neutrophils % 68 % Lymphocytes % 20 % Monocytes % 6 % Eosinophils % 5 % Basophils % 0 % Neutrophils # 3.7 (1.3-7.7) k/uL Lymphocytes # 1.1 (1.0-4.8) k/uL Monocytes # 0.3 (0-1.0) k/uL Eosinophils # 0.2 (0-0.7) k/uL Basophils # 0.0 (0-0.2) k/uL PT 10.7 (10.0-12.5) sec INR 1.0 (<1.2) APTT 27.6 (22.0-30.0) sec Sodium 137 (137-145) mmol/L Potassium 4.4 (3.5-5.1) mmol/L Chloride 105 (98-107) mmol/L Carbon Dioxide 25 (22-30) mmol/L Anion Gap 7 mmol/L BUN 15 (7-17) mg/dL Creatinine 0.76 (0.52-1.04) mg/dL Est GFR (CKD-EPI)AfAm 88 (>60 ml/min/1.73 sqM) Est GFR (CKD-EPI)NonAf 76 (>60 ml/min/1.73 sqM) Glucose 133 H (74-99) mg/dL Calcium 9.4 (8.4-10.2) mg/dL Magnesium 2.0 (1.6-2.3) mg/dL Total Bilirubin 0.9 (0.2-1.3) mg/dL AST 30 (14-36) U/L ALT 21 (4-34) U/L Alkaline Phosphatase 62 (38-126) U/L Troponin I (0.000-0.034) ng/mL NT-Pro-B Natriuret Pep 589 pg/mL Total Protein 7.2 (6.3-8.2) g/dL Albumin 4.3 (3.5-5.0) g/dL Influenza Type A (PCR) (Not Detectd) Influenza Type B (PCR) (Not Detectd) RSV (PCR) (Not Detectd) SARS-CoV-2 (PCR) (Not Detectd) 04/30/23 04/30/23 Range/Units 04:43 07:22 WBC (3.8-10.6) k/uL RBC (3.80-5.40) m/uL Hgb (11.4-16.0) gm/dL Hct (34.0-46.0) % MCV (80.0-100.0) fL MCH (25.0-35.0) pg MCHC (31.0-37.0) g/dL RDW (11.5-15.5) % Plt Count (150-450) k/uL MPV Neutrophils % % Lymphocytes % % Monocytes % % Eosinophils % % Basophils % % Neutrophils # (1.3-7.7) k/uL Lymphocytes # (1.0-4.8) k/uL Monocytes # (0-1.0) k/uL Eosinophils # (0-0.7) k/uL Basophils # (0-0.2) k/uL PT (10.0-12.5) sec INR (<1.2) APTT (22.0-30.0) sec Sodium (137-145) mmol/L Potassium (3.5-5.1) mmol/L Chloride (98-107) mmol/L Carbon Dioxide (22-30) mmol/L Anion Gap mmol/L BUN (7-17) mg/dL Creatinine (0.52-1.04) mg/dL Est GFR (CKD-EPI)AfAm (>60 ml/min/1.73 sqM) Est GFR (CKD-EPI)NonAf (>60 ml/min/1.73 sqM) Glucose (74-99) mg/dL Calcium (8.4-10.2) mg/dL Magnesium (1.6-2.3) mg/dL Total Bilirubin (0.2-1.3) mg/dL AST (14-36) U/L ALT (4-34) U/L Alkaline Phosphatase (38-126) U/L Troponin I <0.012 (0.000-0.034) ng/mL NT-Pro-B Natriuret Pep pg/mL Total Protein (6.3-8.2) g/dL Albumin (3.5-5.0) g/dL Influenza Type A (PCR) Not Detected (Not Detectd) Influenza Type B (PCR) Not Detected (Not Detectd) RSV (PCR) Not Detected (Not Detectd) SARS-CoV-2 (PCR) Not Detected (Not Detectd) Disposition Clinical Impression: Hypertension Disposition: HOME SELF-CARE Condition: Good Instructions (If sedation given, give patient instructions): Hypertension (ED) Is patient prescribed a controlled substance at d/c from ED?: No Referrals: None,Stated [REFERRING] - 1-2 days
[2023-04-30] MEDS: cloNIDine HCL 0.2 MG TAB PO STA (04:55)
[2023-04-30 04:56] LABS: Basophils % (A) 0 %; Eosinophils # (A) 0.2 k/uL (0-0.7); Eosinophils % (A) 5 %; HCT 47.9 % (34.0-46.0); Lymphocytes # (A) 1.1 k/uL (1.0-4.8); Lymphocytes % (A) 20 %; MCH 30.7 pg (25.0-35.0); MCHC 33.5 g/dL (31.0-37.0); MCV 91.6 fL (80.0-100.0); Mean Platelet Volume 8.3; Monocytes # (A) 0.3 k/uL (0-1.0); Monocytes % (A) 6 %; Neutrophils # (A) 3.7 k/uL (1.3-7.7); Neutrophils % (A) 68 %; Platelet Count 224 k/uL (150-450); RBC 5.22 m/uL (3.80-5.40); WBC 5.5 k/uL (3.8-10.6)
[2023-04-30 05:05] LABS: ALT 21 U/L (4-34); AST 30 U/L (14-36); African American GFR (CKD) 88 (>60 ml/min/1.73 sqM); Albumin 4.3 g/dL (3.5-5.0); Alkaline Phosphatase 62 U/L (38-126); Anion Gap 7 mmol/L; Blood Urea Nitrogen 15 mg/dL (7-17); Calcium 9.4 mg/dL (8.4-10.2); Carbon Dioxide 25 mmol/L (22-30); Chloride 105 mmol/L (98-107); Glucose 133 mg/dL (74-99); Non-African American GFR(CKD) 76 (>60 ml/min/1.73 sqM); Potassium 4.4 mmol/L (3.5-5.1); Sodium 137 mmol/L (137-145); Total Bilirubin 0.9 mg/dL (0.2-1.3); Total Protein 7.2 g/dL (6.3-8.2)
[2023-04-30 05:06] LABS: Partial Thromboplastin Time 27.6 sec (22.0-30.0); Prothrombin Time 10.7 sec (10.0-12.5)
[2023-04-30 05:13] LABS: NT-Pro-B-Type Natriuretic Pept 589 pg/mL
--- NOTE | 2023-04-30 06:15 | XR ---
EXAMINATION TYPE: XR chest 2V DATE OF EXAM: 04/30/2023 COMPARISON: Chest x-ray July 13, 2019 HISTORY: Chest pain TECHNIQUE: Frontal and lateral views of the chest are obtained. FINDINGS: Overlying sternal wires are redemonstrated. There is no focal air space opacity, pleural ef fusion, or pneumothorax seen. The cardiac silhouette size is stable and within normal limits. There is mechanical aortic valve redemonstrated. Multilevel spurring in the spine. IMPRESSION: No acute cardiopulmonary process. No significant change from prior.
[2023-04-30 07:04] VITALS: RESP 16
[2023-04-30] MEDS: SODIUM CHLORIDE 0.9% 500 ML 500 ML IV STA (08:00)
[2023-04-30 09:19] LABS: Appearance,Urine Clear (Clear); Bilirubin,Urine Negative (Negative); Blood,Urine Negative (Negative); Color,Urine Light Yellow; Glucose,Urine (UA) 4+ (Negative); Ketones,Urine 1+ (Negative); Leukocyte Esterase,Urine Negative (Negative); Nitrite,Urine Negative (Negative); Protein,Urine Negative (Negative); Specific Gravity,Urine 1.021 (1.001-1.035); Urobilinogen,Urine <2.0 mg/dL (<2.0)
[2023-04-30 10:36] VITALS: BP 145/62; PULSE 47; TEMP 97.8
== END 2023-04-30 10:24 | disposition home or self-care (01) ==
LOC: EC 04:00
DX: I10 Essential (primary) hypertension (principal); E11.9 Type 2 diabetes mellitus without complications; E78.5 Hyperlipidemia, unspecified; M19.90 Unspecified osteoarthritis, unspecified site; Z79.84 Long term (current) use of oral hypoglycemic drugs; Z79.899 Other long term (current) drug therapy; Z87.891 Personal history of nicotine dependence; Z95.1 Presence of aortocoronary bypass graft; Z95.2 Presence of prosthetic heart valve; Z20.822 Contact with and (suspected) exposure to COVID-19
CPT/HCPCS: 36415; 71046; 80053; 81003; 83735; 83880; 84484; 85025; 85610; 85730; 87636; 93005; 99284

== ENCOUNTER → 2023-06-14 | Outpatient (CLI) | payer MEDICARE ==
--- NOTE | 2023-06-19 09:40 | MM ---
Reason for Exam: Screening (asymptomatic). Last screening mammogram was performed 12 month(s) ago. Patient History: Menarche at age 14. First Full-Term at age 21. Left ovary removed at age 42. Right ovary removed at age 42. Hysterectomy at age 42. Postmenopausal. Estrogen for 7 years from age 42 until age 49. Maternal cousin had breast cancer, age 50. Mother had breast cancer, age 78. Risk Values: Smiley 5 year model risk: 3.3%. NCI Lifetime model risk: 6.3%. Prior Study Comparison: 07/30/2018 Bilateral Diagnostic Mammogram, [facility]. 05/18/2021 Bilateral Screening Mammogram, [facility]. 06/12/2022 Bilateral MG 3D screening mammo w/cad, [facility]. Tissue Density: The breasts are heterogeneously dense, which may obscure small masses. Findings: Analyzed By CAD. There is no suspicious group of microcalcifications or new suspicious mass in either breast. There are benign-appearing calcifications. Overall Assessment: Benign, BI-RAD 2 Management: Screening Mammogram of both breasts in 1 year. . Patient should continue monthly self-breast exams. A clinical breast exam by your physician is recommended on an annual basis. This exam should not preclude additional follow-up of suspicious palpable abnormalities. Note on Smiley scores and lifetime risk: 1. A Smiley score greater than 3% is considered moderate risk. If this is the case, consider specialist referral to assess eligibility for a risk reducing agent. 2. If overall lifetime risk for the development of breast cancer is 20% or higher, the patient may qualify for future screening with alternating mammogram and breast MRI. Electronically signed and approved by: Chino Adorno M.D. Radiologis
== END | disposition home or self-care (01) ==
LOC: RADMAMWWP 10:01
PROVIDERS: ATTEND Family Medicine
DX: Z12.31 Encounter for screening mammogram for malignant neoplasm of breast (principal); Z78.0 Asymptomatic menopausal state; Z80.3 Family history of malignant neoplasm of breast
CPT/HCPCS: 77063; 77067

== ENCOUNTER → 2024-09-17 | Outpatient (CLI) | payer MEDICARE ==
--- NOTE | 2024-09-17 10:02 | MM ---
Reason for Exam: Screening (asymptomatic). Last mammogram was performed 1 year(s) and 3 month(s) ago. Patient History: Menarche at age 14. First Full-Term at age 21. Left ovary removed at age 42. Right ovary removed at age 42. Hysterectomy at age 42. Postmenopausal. Estrogen for 7 years from age 42 until age 49. Maternal cousin had breast cancer, age 50. Mother had breast cancer, age 78. Risk Values: Smiley 5 year model risk: 3.3%. NCI Lifetime model risk: 5.9%. Prior Study Comparison: 05/18/2021 Bilateral Screening Mammogram, [facility]. 06/12/2022 Bilateral MG 3D screening mammo w/cad, [facility]. 06/14/2023 Bilateral MG 3D screening mammo w/cad, [facility]. Tissue Density: There are scattered areas of fibroglandular density. Findings: Analyzed By CAD. Right breast: There is no suspicious group of microcalcifications or new suspicious mass. Left breast: There is no suspicious group of microcalcifications or new suspicious mass. Overall Assessment: Negative, BI-RAD 1 Management: Screening Mammogram of both breasts in [address] [facility] will attempt to contact patient to return for supplemental views and ultrasound if indicated. Patient should continue monthly self-breast exams. A clinical breast exam by your physician is recommended on an annual basis. This exam should not preclude additional follow-up of suspicious palpable abnormalities. Note on Smiley scores and lifetime risk: 1. A Smiley score greater than 3% is considered moderate risk. If this is the case, consider specialist referral to assess eligibility for a risk reducing agent. 2. If overall lifetime risk for the development of breast cancer is 20% or higher, the patient may qualify for future screening with alternating mammogram and breast MRI. [facility], , 09/17/2024 9:58 AM. Electronically signed and approved by: Emil Flood DO
== END | disposition home or self-care (01) ==
LOC: RADMAMWWP 09:25
PROVIDERS: ATTEND Family Medicine
DX: Z12.31 Encounter for screening mammogram for malignant neoplasm of breast (principal); R92.323 Mammographic fibroglandular density, bilateral breasts; Z78.0 Asymptomatic menopausal state; Z80.3 Family history of malignant neoplasm of breast
CPT/HCPCS: 77063; 77067